=== PATIENT | male | born 1965 | race African-American/Black ===

== ENCOUNTER → 2016-11-13 | Outpatient (CLI) | payer MEDICAID ==
--- NOTE | 2016-11-13 15:22 | PN ---
DATE OF SERVICE: 11/13/2016 A 51-year-old gentleman who has been followed in the [facility] for treatment of obstructive sleep apnea-hypopnea syndrome. Patient has history of extremely severe obstructive sleep apnea-hypopnea syndrome with apnea-hypopnea index 98 with oxygen desaturation to 63%. Sleep study done in 2005. Since that time, patient is on treatment with CPAP, last titration done in 2009. Since that time, patient is on treatment on the pressure of 17 cm of water. Last time when I saw patient in the Sleep Center was 06/08/2014. At that time, he increased his weight up to 367 pounds from 352 pounds during titration. Today. His weight is down to 321 pounds. Patient continued to use his equipment every night. Sometimes when he is extremely tired, he has snoring with the machine. Sleep schedule is from around 9 p.m. to 4 a.m. Usually one time he goes to bed bathroom. Weir Sleepiness Scale is 1. 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 MEDICATIONS: Advair, enalapril, atenolol, spironolactone, ( ). During physical exam, the patient in no distress. BP 157/97, HR 60, RR 16. Height 6, 0. Weight 321, BMI 43.5. Neck 19 inches in circumference. Temperature 97.8. Oxygen saturation at room air 95%. Oropharynx low, position of soft palate short distance between soft palate and pharyngeal wall. ABDOMEN: Obese. EXTREMITIES: 1+ bilateral ankle edema. IMPRESSION: 1. Extremely severe obstructive sleep apnea-hypopnea syndrome. According to patient, he continued to use is CPAP equipment every night with a pressure of 17 cm of water. Sometimes he has snoring with the machine. 2. Obesity, body mass index of 43.5. Patient lost weight on about 40 pounds since previous titration. 3. Hypertension. 4. Asthma. 5. Status post tonsillectomy. 6. Swelling of the legs. PLAN: 1. Will repeat CPAP, if necessary BiPAP titration. 2. Will check condition of the patient's CPAP unit, if necessary we will replace unit. 3. Prescription for all necessary CPAP supplies. 4. I will see the patient for followup visit in about 4 weeks after titration will be done to relieve his clinical response on treatment, compliance with treatment and make any necessary adjustments. 5. Prescription for all necessary CPAP supplies now including mask, tube, filters. Thank you very much for allowing me to participate in the management of your patient. Sincerely, Ben Pagan MD, PhD, FAASM. Diplomat of [place] [employer], Sleep Medicine Board by [place] [employer] [place] [employer] Visual Lead of [facility] [place]
== END | disposition home or self-care (01) ==
LOC: SLEEP 13:24
PROVIDERS: ATTEND Internal Medicine
DX: G47.33 Obstructive sleep apnea (adult) (pediatric) (principal); E66.9 Obesity, unspecified; Z68.41 Body mass index [BMI] 40.0-44.9, adult; I10 Essential (primary) hypertension; J45.909 Unspecified asthma, uncomplicated; M79.89 Other specified soft tissue disorders; Z98.890 Other specified postprocedural states; Z79.899 Other long term (current) drug therapy
CPT/HCPCS: 99211

== ENCOUNTER → 2017-02-26 | Outpatient (CLI) | payer MEDICAID ==
--- NOTE | 2017-02-27 06:41 | PN ---
DATE OF SERVICE: 02/26/2017 A 51-year-old gentleman who has been followed in the sleep center for treatment of obstructive sleep apnea-hypopnea syndrome. Recently patient had ( ) titration with CPAP and received his new CPAP unit. He came for follow-up visit with his CPAP unit. I checked his CPAP unit. It showed that the patient is using equipment 100% of the time more than 4 hours. CPAP pressure is 15. Leak is 8 L per minute, which is acceptable. Total apnea-hypopnea index is only 1.3. Patient does not experience any problem related to the pressure, likes his machine. He has some problem with his full face mask. It is not very stable on his face. MEDICATIONS: Advair, enalapril, atenolol, spironolactone, ( ). PHYSICAL EXAMINATION: During physical exam, the patient in no distress. VITAL SIGNS: BP 178/98, HR 60, RR 16. Weight 316. Temperature 98.0. Oxygen saturation on room air 96%. HEENT: PERRLA, EOMI. Oropharynx low position of soft palate. NECK: Supple. No JVD, Thyroid is not palpable. LUNGS: Clear to percussion and to auscultation. Good air exchange. No wheezing or rhonchi. HEART: S1, S2 regular. No murmurs, gallops, or rubs. ABDOMEN: Obese. EXTREMITIES: 1+ ankle edema. 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 Cranial nerves 2 to 7 intact. There is no fasciculation or atrophy noted. No focal deficits observed. IMPRESSION: 1. Obstructive sleep apnea-hypopnea syndrome on full control with CPAP at 15 cm of water. 2. Hypertension. 3. Asthma. 4. Obesity. 5. Status post tonsillectomy. 6. Swelling of legs. PLAN: 1. Continue treatment with CPAP every night for the whole night. 2. Losing weight. 3. Sleep hygiene with regular time in bed for at least 8 hours. 4. No driving if feeling any sleepiness. 5. We will try to fit patient with different full face mask. Thank you very much for allowing me to participate in the management of your patient. Sincerely, Ben Pagan MD, PhD, FAASM Diplomat of [place] [employer], Sleep Medicine Board by [employer] Developer of [facility] [place]
== END | disposition home or self-care (01) ==
LOC: SLEEP 16:33
PROVIDERS: ATTEND Internal Medicine
DX: G47.33 Obstructive sleep apnea (adult) (pediatric) (principal); Z79.899 Other long term (current) drug therapy; I10 Essential (primary) hypertension; J45.909 Unspecified asthma, uncomplicated; E66.9 Obesity, unspecified; M79.89 Other specified soft tissue disorders

== ENCOUNTER 2018-09-01 14:48 | Inpatient (IN) | payer BC ==
--- NOTE | 2018-09-01 15:17 | ED ---
General Adult HPI - General Source: patient, RN notes reviewed Mode of arrival: ambulatory Limitations: no limitations <John Ontiveros - Last Filed: 09/01/18 18:44> <Nikko Pate - Last Filed: 09/01/18 18:49> - General Chief complaint: Recheck/Abnormal Lab/Rx Stated complaint: Abn lab results Time Seen by Provider: 09/01/18 14:57 - History of Present Illness Initial comments: Patient's a 53-year-old male presenting to the emergency room with multiple complaints. Patient does admit that he was seen at the family doctor's office recently. He states that he was called and notified that he had an abnormally high potassium and advised come here in emergency room. Patient states she's also had some cough some congestion. He does admit that he's had some right- sided lower back pain that has been following up with the family doctor for as well over the past two weeks. Patient denies any current back pain. States comes and goes and worse with certain movement. He states he has had some swelling down into his legs bilaterally. He admits to some cough congestion. Patient denies any other complaints or symptoms currently. Patient denies any recent fever, chills, shortness of breath, chest pain, abdominal pain, nausea or vomiting, numbness or tingling, headaches or visual changes, or any other complaints. (John Ontiveros) - Related Data Home Medications Medication Instructions Recorded Confirmed Albuterol Sulfate [Proair Hfa] 1 - 2 puff INHALATION RT-QID PRN 09/01/18 Atenolol 100 mg PO HS 09/01/18 09/01/18 Doxazosin [Cardura] 4 mg PO HS 09/01/18 09/01/18 Fluticasone/Salmeterol [Advair 1 puff INHALATION RT-BID 09/01/18 09/01/18 500-50 Diskus] Furosemide [Lasix] 20 mg PO HS 09/01/18 09/01/18 Ibuprofen [Motrin] 800 mg PO TID PRN 09/01/18 09/01/18 Losartan Potassium 100 mg PO HS 09/01/18 09/01/18 Spironolactone [Aldactone] 25 mg PO HS 09/01/18 09/01/18 traMADol HCL [Ultram] 50 mg PO TID PRN 09/01/18 09/01/18 Allergies Allergy/AdvReac Type Severity Reaction Status Date / Time enalapril Allergy Swelling Verified 09/01/18 16:04 feathers Allergy Unknown Verified 09/01/18 16:04 Influenza Virus Vaccines Allergy Unknown Verified 09/01/18 16:04 Review of Systems ROS Other: All systems not noted in ROS Statement are negative. <John Ontiveros - Last Filed: 09/01/18 18:44> ROS Other: All systems not noted in ROS Statement are negative. <Nikko Pate - Last Filed: 09/01/18 18:49> ROS Statement: Those systems with pertinent positive or pertinent negative responses have been documented in the HPI. Past Medical History Past Medical History: Asthma, Hypertension, Sleep Apnea/CPAP/BIPAP History of Any Multi-Drug Resistant Organisms: None Reported Past Surgical History: Tonsillectomy Past Psychological History: No Psychological Hx Reported Smoking Status: Former smoker Past Alcohol Use History: None Reported Past Drug Use History: None Reported <John Ontiveros - Last Filed: 09/01/18 18:44> General Exam Limitations: no limitations <John Ontiveros - Last Filed: 09/01/18 18:44> <Nikko Pate - Last Filed: 09/01/18 18:49> - General Exam Comments Initial Comments: General: The patient is awake and alert, in no distress, and does not appear acutely ill. Eye: Pupils are equal, round and reactive to light, extra-ocular movements are intact. No nystagmus. There is normal conjunctiva bilaterally. No signs of icterus. Ears, nose, mouth and throat: There are moist mucous membranes and no oral lesions. Neck: The neck is supple, there is no tenderness or JVD. Cardiovascular: There is a regular rate and rhythm. No murmur, rub or gallop is appreciated. Respiratory: Lungs are clear to auscultation, respirations are non-labored, breath sounds are equal. No wheezes, stridor, rales, or rhonchi. Musculoskeletal: Normal ROM, no tenderness. Strength 5/5. Sensation intact. Pulses equal bilaterally 2+. 1+ pitting edema Neurological: A&O x 3. CN II-XII intact, There are no obvious motor or sensory deficits. Coordination appears grossly intact. Speech is normal. Skin: Skin is warm and dry and no rashes or lesions are noted. Psychiatric: Cooperative, appropriate mood & affect, normal judgment. (John Ontiveros) Course <John Ontiveros - Last Filed: 09/01/18 18:44> <Nikko Pate - Last Filed: 09/01/18 18:49> Vital Signs 09/01/18 09/01/18 09/01/18 14:49 16:46 16:52 Temperature 98.1 F Pulse Rate 96 78 88 Respiratory 18 18 18 Rate Blood Pressure 163/110 Blood Pressure [Left Arm] Blood Pressure [Right Arm] O2 Sat by Pulse 95 Oximetry 09/01/18 18:20 Temperature Pulse Rate Respiratory Rate Blood Pressure Blood Pressure 180/130 [Left Arm] Blood Pressure 172/120 [Right Arm] O2 Sat by Pulse Oximetry - Reevaluation(s) Reevaluation #1: 09/01/18 18:49 Patient reevaluated by myself, Dr. Pate. Patient and family updated on results and plan. There is concern for new-onset A. fib. There is also concern for intermediate probability pulmonary embolism. Case was discussed in detail with Dr. jo, who will admit for . IV heparin has been started. Blood pressure were be further controlled. Cardiology and pulmonary consults will be placed. (Nikko Pate) EKG Findings - EKG Comments: EKG Findings:: EKG performed at 1516 shows atrial flutter at 99 bpm. QRS is 100. QT/QTC 340/436. No acute ST change. <John Ontiveros - Last Filed: 09/01/18 18:44> Medical Decision Making - Lab Data Result diagrams: 09/01/18 15:30 09/01/18 15:30 <John Ontiveros - Last Filed: 09/01/18 18:44> - Lab Data Result diagrams: 09/01/18 15:30 09/01/18 15:30 <Nikko Pate - Last Filed: 09/01/18 18:49> - Medical Decision Making Patient reexamined at this time shows no signs of distress is resting comfortably. Patient's EKG does show evidence for atrial flutter. No old EKG to compare. Patient denies any known history of A. fib or a flutter. Patient had outpatient labs obtained both on August 31 and on September 01. Labs were reviewed showing elevated potassium of 6.8. Did have an elevated d-dimer at 0.88. BNP was also elevated. Patient did have a V/Q scan due to kidney function. Computed tomography scan does show evidence for PE. Patient started on high-dose heparin here in the emergency room. Patient potassium 5.8 given dose of Lasix. Patient's BNP greater than 5000. Patient blood pressure and elevated here in the emergency room but did not take his home medication. Patient will be admitted to the hospital with consult to cardiology and pulmonology. (John Ontiveros) - Lab Data Lab Results 09/01/18 09/01/18 09/01/18 Range/Units 15:30 15:30 15:30 WBC 7.1 (3.8-10.6) k/uL RBC 4.57 (4.30-5.90) m/uL Hgb 11.9 L (13.0-17.5) gm/dL Hct 39.1 (39.0-53.0) % MCV 85.6 (80.0-100.0) fL MCH 26.1 (25.0-35.0) pg MCHC 30.5 L (31.0-37.0) g/dL RDW 14.3 (11.5-15.5) % Plt Count 171 (150-450) k/uL Neutrophils % 78 % Lymphocytes % 14 % Monocytes % 5 % Eosinophils % 3 % Basophils % 0 % Neutrophils # 5.5 (1.3-7.7) k/uL Lymphocytes # 1.0 (1.0-4.8) k/uL Monocytes # 0.3 (0-1.0) k/uL Eosinophils # 0.2 (0-0.7) k/uL Basophils # 0.0 (0-0.2) k/uL Hypochromasia Moderate Sodium 141 (137-145) mmol/L Potassium 5.8 H (3.5-5.1) mmol/L Chloride 112 H (98-107) mmol/L Carbon Dioxide 25 (22-30) mmol/L Anion Gap 4 mmol/L BUN 30 H (9-20) mg/dL Creatinine 2.25 H (0.66-1.25) mg/dL Est GFR (CKD-EPI)AfAm 37 (>60 ml/min/1.73 sqM) Est GFR (CKD-EPI)NonAf 32 (>60 ml/min/1.73 sqM) Glucose 132 H (74-99) mg/dL Calcium 8.3 L (8.4-10.2) mg/dL Total Bilirubin 0.5 (0.2-1.3) mg/dL AST 36 (17-59) U/L ALT 44 (21-72) U/L Alkaline Phosphatase 46 (38-126) U/L Total Creatine Kinase 401 H (55-170) U/L CK-MB (CK-2) 6.6 H (0.0-2.4) ng/mL CK-MB (CK-2) Rel Index 1.6 Troponin I 0.038 H* (0.000-0.034) ng/mL NT-Pro-B Natriuret Pep pg/mL Total Protein 5.9 L (6.3-8.2) g/dL Albumin 3.1 L (3.5-5.0) g/dL 09/01/18 Range/Units 15:30 WBC (3.8-10.6) k/uL RBC (4.30-5.90) m/uL Hgb (13.0-17.5) gm/dL Hct (39.0-53.0) % MCV (80.0-100.0) fL MCH (25.0-35.0) pg MCHC (31.0-37.0) g/dL RDW (11.5-15.5) % Plt Count (150-450) k/uL Neutrophils % % Lymphocytes % % Monocytes % % Eosinophils % % Basophils % % Neutrophils # (1.3-7.7) k/uL Lymphocytes # (1.0-4.8) k/uL Monocytes # (0-1.0) k/uL Eosinophils # (0-0.7) k/uL Basophils # (0-0.2) k/uL Hypochromasia Sodium (137-145) mmol/L Potassium (3.5-5.1) mmol/L Chloride (98-107) mmol/L Carbon Dioxide (22-30) mmol/L Anion Gap mmol/L BUN (9-20) mg/dL Creatinine (0.66-1.25) mg/dL Est GFR (CKD-EPI)AfAm (>60 ml/min/1.73 sqM) Est GFR (CKD-EPI)NonAf (>60 ml/min/1.73 sqM) Glucose (74-99) mg/dL Calcium (8.4-10.2) mg/dL Total Bilirubin (0.2-1.3) mg/dL AST (17-59) U/L ALT (21-72) U/L Alkaline Phosphatase (38-126) U/L Total Creatine Kinase (55-170) U/L CK-MB (CK-2) (0.0-2.4) ng/mL CK-MB (CK-2) Rel Index Troponin I (0.000-0.034) ng/mL NT-Pro-B Natriuret Pep 5200 pg/mL Total Protein (6.3-8.2) g/dL Albumin (3.5-5.0) g/dL Disposition Is patient prescribed a controlled substance at d/c from ED?: No Time of Disposition: 18:32 <John Ontiveros - Last Filed: 09/01/18 18:44> <Nikko Pate - Last Filed: 09/01/18 18:49> Clinical Impression: New onset atrial flutter, Pulmonary embolism, Hyperkalemia, Elevated troponin, MARION (acute kidney injury), CHF (congestive heart failure), HTN (hypertension) Disposition: ADMITTED IP TO THIS HOSP Condition: Stable Referrals: Williams Herring MD [Primary Care Provider] - 1-2 days
[2018-09-01 15:50] LABS: Basophils % (A) 0 %; Eosinophils # (A) 0.2 k/uL (0-0.7); Eosinophils % (A) 3 %; HCT 39.1 % (39.0-53.0); HGB 11.9 gm/dL (13.0-17.5); Hypochromasia Moderate; Lymphocytes % (A) 14 %; MCH 26.1 pg (25.0-35.0); MCHC 30.5 g/dL (31.0-37.0); MCV 85.6 fL (80.0-100.0); Mean Platelet Volume 6.7; Monocytes # (A) 0.3 k/uL (0-1.0); Monocytes % (A) 5 %; Neutrophils # (A) 5.5 k/uL (1.3-7.7); Neutrophils % (A) 78 %; Platelet Count 171 k/uL (150-450); RBC 4.57 m/uL (4.30-5.90); RDW 14.3 % (11.5-15.5); WBC 7.1 k/uL (3.8-10.6)
[2018-09-01 16:02] LABS: Albumin 3.1 g/dL (3.5-5.0); Calcium 8.3 mg/dL (8.4-10.2); Potassium 5.8 mmol/L (3.5-5.1); Total Bilirubin 0.5 mg/dL (0.2-1.3); Total Protein 5.9 g/dL (6.3-8.2)
[2018-09-01 16:21] LABS: Creatine Kinase MB 6.6 ng/mL (0.0-2.4)
[2018-09-01 16:32] LABS: Troponin I 0.038 ng/mL (0.000-0.034)
[2018-09-01] MEDS ORDERED: IPRATROPIUM-ALBUTEROL 3 ML NEB INHALATION STA (16:33)
[2018-09-01] MEDS ORDERED: HEPARIN SODIUM,PORCINE 5,000 UNIT/ML 1 ML VIAL IV ONE (16:58)
[2018-09-01] MEDS ORDERED: FUROSEMIDE 10 MG/ML 4 ML VIAL IV STA (16:59)
[2018-09-01] MEDS ORDERED: HEPARIN SOD,PORK IN 0.45% NACL 25,000 UNIT in 0.45% NACL 1 500ML.BAG IV SCH (17:00)
--- NOTE | 2018-09-01 17:57 | NM ---
EXAMINATION TYPE: NM pul vent and perfuse DATE OF EXAM: 09/01/2018 COMPARISON: NONE HISTORY: Short of breath TECHNIQUE: Utilizing inhalation of 33.1 mCi Tc 99m DTPA aerosol and intravenous injection of 5.41 mC i of Tc 99m MAA, ventilation and perfusion images are acquired post injection in multiple projections . FINDINGS: There is a large matched defect involving the right upper lobe anteriorly. There are numerous ventila tion abnormalities throughout the lungs. There is subsegmental perfusion defects in the remainder of the lung guy. IMPRESSION: Large right upper lobe matched defect. There is intermediate probability of pulmonary embolism. There is evidence for diffuse airway disease.
[2018-09-01] MEDS ORDERED: HEPARIN SODIUM,PORCINE 5,000 UNIT/ML 1 ML VIAL IV STA (18:08)
[2018-09-01] MEDS ORDERED: NITROGLYCERIN OINT 1 INCH/GM PACKET TOPICAL STA (18:22)
[2018-09-01] MEDS ORDERED: ATENOLOL 50 MG TAB PO STA (18:22)
[2018-09-01] MEDS ORDERED: SODIUM CHLORIDE 0.9% 1,000 ML IV ONE (18:24)
[2018-09-01] MEDS ORDERED: ASPIRIN 81 MG PO STA (18:24)
[2018-09-01] MEDS: HEPARIN SOD,PORK IN 0.45% NACL 25,000 UNIT in 0.45% NACL 1 500ML.BAG IV SCH (18:42)
--- NOTE | 2018-09-01 19:43 | XR ---
EXAMINATION TYPE: XR chest 2V DATE OF EXAM: 09/01/2018 COMPARISON: NONE HISTORY: Cough TECHNIQUE: Frontal and lateral views of the chest are obtained. FINDINGS: Heart appears enlarged. There is no gross heart failure. There is coarsening of the lung m arkings. There is no pleural effusion. Bony thorax is intact. IMPRESSION: Mild pulmonary congestion without overt heart failure. Mild cardiomegaly.
[2018-09-01 23:08] LABS: Creatine Kinase MB 8.1 ng/mL (0.0-2.4)
[2018-09-01 23:11] LABS: Troponin I 0.045 ng/mL (0.000-0.034)
[2018-09-02] MEDS ORDERED: IBUPROFEN 800 MG TAB PO PRN (03:04)
[2018-09-02] MEDS: traMADol 50 MG TAB PO PRN ×2 (03:26→20:22)
[2018-09-02 04:32] LABS: Cholesterol 188 mg/dL (<200); HDL Cholesterol 73 mg/dL (40-60); LDL Cholesterol,Calculated 97 mg/dL (0-99); Triglycerides 90 mg/dL (<150)
[2018-09-02 04:46] LABS: Creatine Kinase MB 8.1 ng/mL (0.0-2.4)
[2018-09-02 04:53] LABS: Troponin I 0.047 ng/mL (0.000-0.034)
[2018-09-02] MEDS: HEPARIN SOD,PORK IN 0.45% NACL 25,000 UNIT in 0.45% NACL 1 500ML.BAG IV SCH ×2 (06:35→18:19)
--- NOTE | 2018-09-02 08:49 | P.CRDCN ---
History of Present Illness Consult date: 09/02/18 Requesting physician: Patrick Manuel Consult reason: atrial flutter Chief complaint: Leg pain and swelling, elevated potassium History of present illness: This is a 53-year-old -[place]ian gentleman with known history of hypertension, asthma, prior history of smoking, he states that he quit smoking approximately 10 years ago, sleep apnea, denies any history of diabetes, no hyperlipidemia. He follows with Dr. Bazzi as his primary care doctor. Patient states he was at his primary care doctor's office, he had lab work done and was noted to have an elevated potassium was directed to come to the emergency room for admission. Patient denies any recent shortness of breath, no chest discomfort, no palpitations. He states the only symptom he's been dealing with recently is pain in his right leg, he has also noticed for the past few weeks to have swelling in his bilateral lower extremities. He does state that he has to sit up to sleep, but denies any PND or orthopnea states that at all related to pain and discomfort in his right leg. Patient does state that he had a recent venous duplex study that came back to be negative, I do not see record of that in our system. Chest x-ray on admission here did show mild pulmonary congestion without overt heart failure. Mild cardiomegaly. Lung perfusion scan was performed which revealed a large right upper lobe matched defect, there is intermediate probability of pulmonary embolism and evidence for diffuse airway disease. EKG on admission here shows typical atrial flutter with moderately rapid ventricular response. Blood pressure on arrival here 162/100, heart rate in the 90s, 95% on room air. Blood pressure this morning 173/115, heart rate in the 70s, 97% on room air. White blood cell count 7.1, hemoglobin 11.9, platelet count 171. Sodium 141, potassium 5.8, BUN 30, creatinine 2.2. Troponins 0.038, 0.045, 0.047. BNP level 5200. 's home medications included Ultram, Aldactone, losartan, Motrin, Lasix, Cardura, atenolol, and albuterol. These have all been resumed here. View of the fact patient has elevated potassium, we will hold the Aldactone at this time, we will also hold the Motrin and Ultram at this time secondary to the abnormal renal function. We will add Norvasc and hydrochlorothiazide to the patient's medication regime for more optimal blood pressure control. Past Medical History Past Medical History: Asthma, Hypertension, Sleep Apnea/CPAP/BIPAP History of Any Multi-Drug Resistant Organisms: None Reported Past Surgical History: Tonsillectomy Past Anesthesia/Blood Transfusion Reactions: No Reported Reaction Past Psychological History: No Psychological Hx Reported Smoking Status: Former smoker Past Alcohol Use History: None Reported Past Drug Use History: None Reported - Past Family History Father Additional Family Medical History / Comment(s): dementia Mother Family Medical History: COPD Medications and Allergies Home Medications Medication Instructions Recorded Confirmed Type Albuterol Sulfate [Proair Hfa] 1 - 2 puff INHALATION RT-QID PRN 09/01/18 History Atenolol 100 mg PO HS 09/01/18 09/01/18 History Doxazosin [Cardura] 4 mg PO HS 09/01/18 09/01/18 History Fluticasone/Salmeterol [Advair 1 puff INHALATION RT-BID 09/01/18 09/01/18 History 500-50 Diskus] Furosemide [Lasix] 20 mg PO HS 09/01/18 09/01/18 History Ibuprofen [Motrin] 800 mg PO TID PRN 09/01/18 09/01/18 History Losartan Potassium 100 mg PO HS 09/01/18 09/01/18 History Spironolactone [Aldactone] 25 mg PO HS 09/01/18 09/01/18 History traMADol HCL [Ultram] 50 mg PO TID PRN 09/01/18 09/01/18 History Allergies Allergy/AdvReac Type Severity Reaction Status Date / Time enalapril Allergy Swelling Verified 09/01/18 16:04 feathers Allergy Unknown Verified 09/01/18 16:04 Influenza Virus Vaccines Allergy Unknown Verified 09/01/18 16:04 Physical Exam Vitals: Vital Signs Temp Pulse Pulse Resp BP BP BP 09/02/18 04:00 98.6 F 72 18 173/115 09/02/18 00:00 98.2 F 72 18 166/108 09/01/18 20:24 98.3 F 62 18 152/91 09/01/18 20:00 98.3 F 62 18 152/91 09/01/18 19:00 146/105 12/05/18 18:30 94 24 09/01/18 18:20 180/130 172/120 09/01/18 18:00 96 24 09/01/18 16:52 88 18 09/01/18 16:46 78 18 09/01/18 16:00 147/113 09/01/18 15:30 115 H 23 151/106 09/01/18 15:17 88 31 H 09/01/18 14:49 98.1 F 96 18 163/110 Pulse Ox 09/02/18 04:00 97 09/02/18 00:00 96 09/01/18 20:24 93 L 09/01/18 20:00 93 L 09/01/18 19:00 09/01/18 18:30 93 L 09/01/18 18:20 09/01/18 18:00 91 L 09/01/18 16:52 09/01/18 16:46 09/01/18 16:00 09/01/18 15:30 90 L 09/01/18 15:17 88 L 09/01/18 14:49 95 Intake and Output 09/01/18 09/02/18 09/02/18 22:59 06:59 14:59 Intake Total 500 Output Total 325 Balance -325 500 Intake: Intake, IV Titration 500 Amount Heparin Sod,Pork in 0.45% 500 NaCl 25,000 unit In 0.45 % NaCl 1 500ml.bag @ 13. 34 UNITS/KG/HR 45.98 mls/ hr IV .[id number] [facility] Rx#: [id number] Output: Urine 325 Other: Voiding Method Urinal Urinal # Voids 1 Weight 172 kg PHYSICAL EXAMINATION: GENERAL: 53-year-old morbidly obese -[place]ian gentleman in no acute distress at the time of my examination HEENT: Head is atraumatic, normocephalic. Pupils equal, round. Sclera anicteric. Conjunctiva are clear. Mucous membranes of the mouth are moist. Neck is supple. There is elevated jugular venous pressure. No carotid bruit is heard. HEART EXAMINATION: Heart S1 and S2 irregularly irregular CHEST EXAMINATION: Lungs are clear with diminished air entry to the bases. ABDOMEN: Soft, obese nontender. Bowel sounds are heard. No organomegaly noted. EXTREMITIES: 1+ peripheral pulses with 1-2+ evidence of peripheral edema.. NEUROLOGIC patient is awake, alert and oriented 3 . . Results 09/01/18 15:30 09/01/18 15:30 Cardiac Enzymes 09/01/18 09/01/18 09/01/18 Range/Units 15:30 15:30 22:26 AST 36 (17-59) U/L CK-MB (CK-2) 6.6 H 8.1 H (0.0-2.4) ng/mL Troponin I 0.038 H* 0.045 H* (0.000-0.034) ng/mL 09/02/18 Range/Units 03:46 AST (17-59) U/L CK-MB (CK-2) 8.1 H (0.0-2.4) ng/mL Troponin I 0.047 H* (0.000-0.034) ng/mL Coagulation 09/02/18 Range/Units 03:46 APTT 71.0 H (22.0-30.0) sec Lipids 09/02/18 Range/Units 03:46 Triglycerides 90 (<150) mg/dL Cholesterol 188 (<200) mg/dL HDL Cholesterol 73 H (40-60) mg/dL CBC 09/01/18 Range/Units 15:30 WBC 7.1 (3.8-10.6) k/uL RBC 4.57 (4.30-5.90) m/uL Hgb 11.9 L (13.0-17.5) gm/dL Hct 39.1 (39.0-53.0) % Plt Count 171 (150-450) k/uL Comprehensive Metabolic Panel 09/01/18 Range/Units 15:30 Sodium 141 (137-145) mmol/L Potassium 5.8 H (3.5-5.1) mmol/L Chloride 112 H (98-107) mmol/L Carbon Dioxide 25 (22-30) mmol/L BUN 30 H (9-20) mg/dL Creatinine 2.25 H (0.66-1.25) mg/dL Glucose 132 H (74-99) mg/dL Calcium 8.3 L (8.4-10.2) mg/dL AST 36 (17-59) U/L ALT 44 (21-72) U/L Alkaline Phosphatase 46 (38-126) U/L Total Protein 5.9 L (6.3-8.2) g/dL Albumin 3.1 L (3.5-5.0) g/dL Current Medications Generic Name Dose Route Start Last Admin Trade Name Freq PRN Reason Stop Dose Admin Albuterol Sulfate 2.5 mg 09/02/18 03:04 Ventolin Nebulized INHALATION RT-QID PRN Shortness Of Breath Aspirin 325 mg 09/02/18 09:00 Aspirin PO DAILY [facility] Atenolol 100 mg 09/02/18 21:00 Tenormin PO HS [facility] Budesonide/Formoterol Fumarate 1 puff 09/02/18 08:00 Symbicort 160-4.5 Mcg Inhaler INHALATION RT-BID MIGUEL ÁNGEL Doxazosin Mesylate 4 mg 09/02/18 21:00 Cardura PO HS [facility] Furosemide 40 mg 09/02/18 09:00 Lasix IV Q12HR [facility] Heparin Sodium/Sodium Chloride 500 mls @ 45.98 mls/hr 09/01/18 18:15 06:35 25,000 unit/ Sodium Chloride IV 13.34 units/kg/hr .[id number] MIGUEL ÁNGEL 45.98 mls/hr Administration Protocol 13.34 UNITS/KG/HR Ibuprofen 800 mg 09/02/18 03:04 Motrin PO TID PRN Pain Losartan Potassium 100 mg 09/02/18 21:00 Cozaar PO HS [facility] Spironolactone 25 mg 09/02/18 21:00 Aldactone PO HS [facility] Tramadol HCl 50 mg 09/02/18 03:04 09/02/18 03:26 Ultram PO 50 mg TID PRN Administration Pain Intake and Output 09/01/18 09/02/18 09/02/18 22:59 06:59 14:59 Intake Total 500 Output Total 325 Balance -325 500 Intake: Intake, IV Titration 500 Amount Heparin Sod,Pork in 0.45% 500 NaCl 25,000 unit In 0.45 % NaCl 1 500ml.bag @ 13. 34 UNITS/KG/HR 45.98 mls/ hr IV .[id number] [facility] Rx#: [id number] Output: Urine 325 Other: Voiding Method Urinal Urinal # Voids 1 Weight 172 kg 09/01/18 15:30 09/01/18 15:30 EKG Interpretations (text) EKG shows atrial flutter with a moderately rapid ventricular response. Assessment and Plan Plan: Assessment and plan #1 hyperkalemia, patient had been taking Aldactone and losartan at home. #2 hypertensive urgency #3 history of hypertension #4 acute renal failure #5 evidence of pulmonary embolism on VQ scan #6 abnormal BNP level, could be secondary to pulmonary embolism, could also represent mild congestive heart failure #7 abnormal troponins, not consistent with acute coronary syndrome, could be secondary to abnormal renal function and presence of pulmonary embolism. #8 asthma #9 sleep apnea #10 prior history of smoking, patient states he quit smoking 10 years ago #11 typical atrial flutter, new onset for the patient Plan We will continue IV heparin,, hold Aldactone, discontinue Motrin and Ultram at this time. We will add Norvasc and hydrochlorothiazide to his medication regime for more optimal blood pressure control. Obtain an echocardiogram with Doppler study. D-dimer. We will also request a venous duplex study of his lower extremities. Further recommendations to follow. DNP note has been reviewed, I agree with a documented findings and plan of care. Patient was seen and examined.
[2018-09-02] MEDS: ALBUTEROL NEBULIZED 2.5 MG/3 ML INHALATION PRN ×2 (08:56→12:15)
[2018-09-02] MEDS: SYMBICORT 160-4.5 MCG INHALER INHALATION SCH ×2 (08:56→20:08)
[2018-09-02] MEDS ORDERED: ASPIRIN 325 MG TAB PO SCH (09:00)
[2018-09-02] MEDS: HYDROCHLOROTHIAZIDE 25 MG TAB PO SCH (09:33)
[2018-09-02] MEDS: ASPIRIN 81 MG PO SCH (09:33)
[2018-09-02] MEDS: amLODIPine 10 MG TAB PO SCH (09:33)
[2018-09-02] MEDS: FUROSEMIDE 10 MG/ML 4 ML VIAL IV SCH ×2 (09:33→20:33)
--- NOTE | 2018-09-02 09:57 | US ---
EXAMINATION TYPE: US venous doppler duplex LE BI DATE OF EXAM: 09/02/2018 9:41 AM COMPARISON: NONE CLINICAL HISTORY: 53-year-old male with pain, rule out DVT. SIDE PERFORMED: Bilateral TECHNIQUE: The lower extremity deep venous system is examined utilizing real time linear array sonog shamar with graded compression, doppler sonography and color-flow sonography. FINDINGS: VESSELS IMAGED: External Iliac Vein (EIV) Common Femoral Vein Deep Femoral Vein Greater Saphenous Vein * Femoral Vein Popliteal Vein Small Saphenous Vein * Proximal Calf Veins (* superficial vessels) Sonography notes: Patient 6'1", 379lbs, technically difficult study. Right Leg: Negative for DVT to the extent visualized. Due to patient's large abdomen, unable to vis ualize the groin region, particularly the EIV, proximal CFV, and GSV. Proximal calf veins not seen, u nable to visualize the lower femoral vein for compression. Left Leg: Negative for DVT to the extent visualized. Due to patient's large abdomen, unable to visu kori the PICC line region, in particular, the EIV, upper CFV, and GSV not seen. The proximal calf ve ins not seen, unable to visualize the lower femoral vein for compressibility. IMPRESSION: Extensive limitation in visualization due to patient large body habitus. Only portions of the common femoral vein and the upper to mid superficial femoral veins, and popliteal veins were adequately visu alized. No DVT along the visualized portions.
--- NOTE | 2018-09-02 11:17 | ECHOF ---
Referral Reason:chest pain MEASUREMENTS -------- HEIGHT: 180.3 cm WEIGHT: 171.9 kg BP: RVIDd: 3.2 cm (< 3.3) IVSd: 1.6 cm (0.6 - 1.1) LVIDd: 3.6 cm (3.9 - 5.3) LVPWd: 1.9 cm (0.6 - 1.1) IVSs: 2.7 cm LVIDs: 1.6 cm LVPWs: 2.4 cm LAESV Index (A-L): 48.03 ml/m Ao Diam: 3.8 cm (2.0 - 3.7) AV Cusp: 2.6 cm (1.5 - 2.6) LA Diam: 4.3 cm (2.7 - 3.8) MV EXCURSION: 16.920 mm (> 18.000) MV EF SLOPE: 104 mm/s (70 - 150) EPSS: 0.6 cm AR PHT: 329 ms RAP: 15.00 mmHg RVSP: 37.63 mmHg FINDINGS -------- Atrial fibrillation. This was a technically adequate study. The left ventricular size is normal. There is severe concentric left ventricular hypertrophy. Ove rall left ventricular systolic function is low-normal with, an EF between 50 - 55 %. The right ventricle is normal in size. LA is severely dilated >40 ml/m2 The right atrium is normal in size. The aortic valve is trileaflet and appears structurally normal. Mild mitral annular calcification present. Mild mitral regurgitation is present. Mild tricuspid regurgitation present. There is mild pulmonary hypertension. The right ventricular systolic pressure, as measured by Doppler, is 37.63mmHg. The pulmonic valve was not well visualized. There is no pulmonic regurgitation present. The aortic root size is normal. The inferior vena cava is mildly dilated. There is a trivial pericardial effusion present. CONCLUSIONS -------- 1. Atrial fibrillation. 2. This was a technically adequate study. 3. The left ventricular size is normal. 4. There is severe concentric left ventricular hypertrophy. 5. Overall left ventricular systolic function is low-normal with, an EF between 50 - 55 %. 6. LA is severely dilated >40 ml/m2 7. The aortic valve is trileaflet and appears structurally normal. 8. Mild mitral annular calcification present. 9. Mild mitral regurgitation is present. 10. Mild tricuspid regurgitation present. 11. There is mild pulmonary hypertension. 12. The pulmonic valve was not well visualized. 13. There is no pulmonic regurgitation present. 14. The aortic root size is normal. 15. The inferior vena cava is mildly dilated. 16. There is a trivial pericardial effusion present. SOFA COVER INSPECTOR: Elmira Ascencio RDCS
[2018-09-02] MEDS: hydrALAZINE HCL 25 MG TAB PO SCH (11:36)
--- NOTE | 2018-09-02 15:38 | P.CNPUL ---
History of Present Illness Consult date: 09/02/18 Reason for consult: dyspnea, pulmonary embolism History of present illness: This is a morbidly obese 53-year-old -[place] male patient with known history of chronic bronchial asthma and obstructive sleep apnea. The patient has been maintained on Advair regarding his bronchial asthma. The patient is also is utilizing CPAP at a pressure of 17 cm of water for severe BARRERA. The patient has also chronic lower extremity edema. Recently was noted to have some increased swelling in lower extremities. He was also having some pain in his right lower extremity that was thought to be related to a sciatic pain. He came into the emergency department the patient was given nonsteroidal anti- inflammatory medication in the form of ibuprofen 800 mg to be taken 3 times a day. Following that, the patient started having some increased swelling in his lower extremities. He had some blood work at his primary care physician's office and he was asked to come into the hospital because of an abnormal electrolyte knowing that the patient's potassium level was apparently found to be elevated. There was also a component of an acute kidney injury. The patient came into the hospital and he had a BUN of 30 with a creatinine of 2.2. His sodium level was 141 with a potassium level of 5.8. His BNP level was 5002 100. 2 sets of troponins were sent and the levels were 0.03 and 0.04 and the last level came back at 0.04. A Doppler of the lower extremity was limited however he did not show any significant popping and lower extremities. There was no evidence of any DVT. VQ scan showed a right upper lobe mass defect. This was called to be of an intermediate probability. Despite this VQ scan findings, the patient denied having any worsening in his baseline shortness of breath. No cough. No sputum production. No pleurisy. No hemoptysis. He denies having any previous history of DVT or pulmonary embolism. His EKG showed atrial water with variable block. The patient was started on IV anticoagulation. He is doing better for now. He is utilizing his CPAP overnight. He quit smoking approximately 10 years ago. No history of diabetes. Most of hyperlipidemia. He is known to have hypertension and bronchial asthma is also within his history. Review of Systems Constitutional: Reports fatigue, Reports weakness Eyes: denies blurred vision, denies bulging eye, denies decreased vision Ears: deny: decreased hearing, ear discharge, earache, tinnitus Ears, nose, mouth and throat: Denies headache, Denies sore throat Cardiovascular: Reports decreased exercise tolerance, Reports dyspnea on exertion, Reports leg edema, Reports shortness of breath Respiratory: Reports dyspnea Gastrointestinal: Denies abdominal pain, Denies diarrhea, Denies nausea, Denies vomiting Musculoskeletal: Reports arm numbness/tingling (In addition to pain in the right lower extremity anterior aspect. The patient also had some increased edema lower extremity is bilaterally.) Musculoskeletal: bilateral: ankle pain, ankle swelling, absent: ankle stiffness Integumentary: Denies pruritus, Denies rash Neurological: Denies numbness, Denies weakness Psychiatric: Denies anxiety, Denies depression Endocrine: Reports fatigue Hematologic/Lymphatic: Reports as per HPI Allergic/Immunologic: Reports as per HPI Past Medical History Past Medical History: Asthma, Hypertension, Sleep Apnea/CPAP/BIPAP Additional Past Medical History / Comment(s): Chronic bronchial asthma, obstructive sleep apnea, obesity with a BMI 50.0, chronic lower extremity edema , hypertension, BPH, History of Any Multi-Drug Resistant Organisms: None Reported Past Surgical History: Tonsillectomy Past Anesthesia/Blood Transfusion Reactions: No Reported Reaction Past Psychological History: No Psychological Hx Reported Smoking Status: Former smoker Past Alcohol Use History: None Reported Past Drug Use History: None Reported - Past Family History Father Additional Family Medical History / Comment(s): dementia Mother Family Medical History: COPD Medications and Allergies Home Medications Medication Instructions Recorded Confirmed Type Albuterol Sulfate [Proair Hfa] 1 - 2 puff INHALATION RT-QID PRN 09/01/18 History Atenolol 100 mg PO HS 09/01/18 09/01/18 History Doxazosin [Cardura] 4 mg PO HS 09/01/18 09/01/18 History Fluticasone/Salmeterol [Advair 1 puff INHALATION RT-BID 09/01/18 09/01/18 History 500-50 Diskus] Furosemide [Lasix] 20 mg PO HS 09/01/18 09/01/18 History Ibuprofen [Motrin] 800 mg PO TID PRN 09/01/18 09/01/18 History Losartan Potassium 100 mg PO HS 09/01/18 09/01/18 History Spironolactone [Aldactone] 25 mg PO HS 09/01/18 09/01/18 History traMADol HCL [Ultram] 50 mg PO TID PRN 09/01/18 09/01/18 History Allergies Allergy/AdvReac Type Severity Reaction Status Date / Time enalapril Allergy Swelling Verified 09/01/18 16:04 feathers Allergy Unknown Verified 09/01/18 16:04 Influenza Virus Vaccines Allergy Unknown Verified 09/01/18 16:04 Physical Exam Vitals: Vital Signs Temp Pulse Pulse Resp BP BP BP 09/02/18 12:27 88 09/02/18 12:16 80 09/02/18 11:30 98.2 F 74 18 160/97 09/02/18 09:11 76 09/02/18 08:57 76 09/02/18 08:45 96.6 F L 77 18 169/111 09/02/18 04:00 98.6 F 72 18 173/115 09/02/18 00:00 98.2 F 72 18 166/108 09/01/18 20:24 98.3 F 62 18 152/91 09/01/18 20:00 98.3 F 62 18 152/91 09/01/18 19:00 146/105 09/01/18 18:30 94 24 09/01/18 18:20 180/130 172/120 09/01/18 18:00 96 24 09/01/18 16:52 88 18 09/01/18 16:46 78 18 09/01/18 16:00 147/113 Pulse Ox 09/02/18 12:27 09/02/18 12:16 09/02/18 11:30 94 L 09/02/18 09:11 09/02/18 08:57 09/02/18 08:45 91 L 09/02/18 04:00 97 09/02/18 00:00 96 09/01/18 20:24 93 L 09/01/18 20:00 93 L 09/01/18 19:00 09/01/18 18:30 93 L 09/01/18 18:20 09/01/18 18:00 91 L 09/01/18 16:52 09/01/18 16:46 09/01/18 16:00 Intake and Output 09/02/18 09/02/18 09/02/18 06:59 14:59 22:59 Intake Total 500 760 Output Total 1600 Balance 500 -840 Intake: Intake, IV Titration 500 160 Amount Heparin Sod,Pork in 0.45% 500 NaCl 25,000 unit In 0.45 % NaCl 1 500ml.bag @ 13. 34 UNITS/KG/HR 45.98 mls/ hr IV .[id number] [facility] Rx#: [id number] Sodium Chloride 0.9% 1, 160 000 ml @ 100 mls/hr IV . Q10H [facility] Rx#:[id number] Oral 600 Output: Urine 1600 Other: Voiding Method Urinal Weight 172 kg Morbidly obese, comfortable likely distress. Head exam was generally normal. There was no scleral icterus or corneal arcus. Mucous membranes were moist. Neck was supple and without jugular venous distension, thyromegaly, or carotid bruits. Carotids were easily palpable bilaterally. There was no adenopathy. The patient has significant crowding of the posterior oropharynx and Mallampati class IV Lungs sounds are diminished in lung bases bilaterally was clear. Sounds equal and symmetrical. Few scattered expiratory wheezes and rhonchi upon forceful expiratory maneuvers. Heart sounds are irregular, distant, positive S1-S2 and there is some accentuation of the second heart sound. Abdominal exam revealed normal bowel sounds. The abdomen was soft, non-tender, and without masses, organomegaly, or appreciable enlargement of the abdominal aorta. Extremities revealed +1-2 bilateral pitting edema and there is no cyanosis or clubbing. No open wounds or sores. Examination of the skin revealed no evidence of significant rashes, suspicious appearing nevi or other concerning lesions. Neurologically awake and alert and is no focal logical deficits. Results - Laboratory Findings CBC and BMP: 09/01/18 15:30 09/01/18 15:30 PT/INR, D-dimer D-Dimer 0.55 mg/L FEU (<0.60) 09/02/18 08:28 Abnormal lab findings: Abnormal Labs 09/01/18 09/01/18 09/01/18 15:30 15:30 15:30 Hgb 11.9 L MCHC 30.5 L APTT Potassium 5.8 H Chloride 112 H BUN 30 H Creatinine 2.25 H Glucose 132 H Calcium 8.3 L Total Creatine Kinase 401 H CK-MB (CK-2) 6.6 H Troponin I 0.038 H* Total Protein 5.9 L Albumin 3.1 L HDL Cholesterol 09/01/18 09/02/18 09/02/18 22:26 03:46 03:46 Hgb MCHC APTT Potassium Chloride BUN Creatinine Glucose Calcium Total Creatine Kinase 353 H 338 H CK-MB (CK-2) 8.1 H 8.1 H Troponin I 0.045 H* 0.047 H* Total Protein Albumin HDL Cholesterol 73 H 09/02/18 03:46 Hgb MCHC APTT 71.0 H Potassium Chloride BUN Creatinine Glucose Calcium Total Creatine Kinase CK-MB (CK-2) Troponin I Total Protein Albumin HDL Cholesterol - Diagnostic Findings Chest x-ray: image reviewed Assessment and Plan Plan: Assessment 1 progressive lower extremity edema currently under investigation. The patient was on a combination of diuretics at home including Aldactone and Lasix. 2 acute kidney injury, probably related to a combination of diuretics and use of nonsteroidal anti-inflammatory medication. Currently off ibuprofen and diuretics have been discontinued also. 3 acute hyperkalemia secondary to MRSA, Aldactone and losartan 4 hypertension 5 obstructive sleep apnea maintained on CPAP therapy at a pressure of 17 cm of water 6 moderate degree of secondary pulmonary hypertension 7 preserved LV function based on her most recent echocardiogram with an ejection fraction of about 50% 8 intermediate probability VQ scan with low suspicion for pulmonary embolism and the Doppler of the lower extremity was negative and a d-dimer was also low 9 atrial flutter with variable block, rate controlled 10 bronchial asthma moderate persistent nature maintained on Advair on outpatient basis 11 BPH Plan Hold nonsteroidal anti-inflammatory medication. Monitor the potassium level. Continue with Lasix 40 mg every 12 hours and follow-up on the renal function and the lower extremity edema. Continue CPAP therapy at pressure of 17 cm of water. The patient on IV heparin and he will need long-term and to coagulation special with underlying chronic atrial flutter. Pulmonary embolism is doubtful. Dr. Aguayo extremity was negative. D-dimer was low. Anticoagulation will be needed on the basis of his atrial flutter. Bronchial asthma currently inactive and stable. Advair was replaced with Symbicort during the The hospital. We'll put the patient was on albuterol nebulized treatments 4 times a day and when necessary. We'll continue to follow.
--- NOTE | 2018-09-02 17:41 | HP ---
HISTORY AND PHYSICAL DATE OF ADMISSION: 09/01/2018. DATE OF SERVICE: 09/02/2018. PRESENTING COMPLAINT: High potassium. HISTORY OF PRESENTING COMPLAINT: This is a 53-year-old patient who follows with Dr. Herring out of [place]. The patient's chronic stable medical conditions include morbid obesity, obstructive sleep apnea, hypertension. The patient gone for his regular physical checkup and was found to have elevated potassium. Other blood work also came back to be abnormal. The patient also noticed to be wheezing for the last 2 weeks, has got a slight cough. Also noted edema of the lower extremities. The patient has been having trouble sleeping, and has been sitting up and sleeping. Also noticed that his sciatica had played up. When patient presented to the ER, he was found to have a potassium 5.8, BUN of 30, creatinine 2.25. Also had a troponin leak of 0.038. The patient admitted for the same. ProBNP was 5200. The patient is put on bronchodilators. Renal offensive medications including diuretics and NSAIDs were discontinued. Consultation was made to Pulmonary and Cardiology. Also, V/Q scan was ordered in the ER that did show a large matched defect of the upper lobe. The patient does use a BiPAP. Feeling tired and run down. No fever or chills. REVIEW OF SYSTEMS: CONSTITUTIONAL: Weak, tired. HEENT none. RESPIRATORY as above including wheezing, coughing. No sputum. CARDIOVASCULAR: Lower extremity edema. GASTROINTESTINAL: None. GENITOURINARY: None. MUSCULOSKELETAL: Chronic low back pain. DERMATOLOGICAL, HEMATOLOGIC, LYMPHATIC: none. PSYCHIATRY: None. NEUROLOGICAL: None. PAST MEDICAL HISTORY: Asthma, hypertension, sleep apnea, obstructive sleep apnea, morbid obesity, chronic lower extremity edema, hypertension, BPH. PAST SURGICAL HISTORY: Tonsillectomy. SOCIAL HISTORY: The patient smoked for about 20 years, stopped 10 years ago. . 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 No alcohol. Lives with his family. FAMILY HISTORY: COPD and dementia. HOME MEDICATIONS: 1. Ultram 50 mg p.o. t.i.d. p.r.n. 2. Aldactone 25 mg q.h.s. 3. Losartan 100 mg q.h.s. 4. Motrin 800 mg p.o. t.i.d. p.r.n. 5. Lasix 20 mg at bedtime. 6. Advair 500/50 1 puff b.i.d. 7. Cardura 4 mg q.h.s. 8. Atenolol 100 mg q.h.s. 9. ProAir 1-2 puffs q.i.d. p.r.n. ALLERGIES: TO ENALAPRIL, INFLUENZA VACCINE. PHYSICAL EXAMINATION: VITAL SIGNS: Temperature 98.1, pulse 96, respiration 31, blood pressure 160/110, pulse ox 95% on room air. GENERAL APPEARANCE: Well built, BMI 50, lying in bed, short of breath at rest. EYES: Pupils equal. Conjunctivae normal. HEENT: External appearance of nose and ears normal. Oral cavity normal. NECK: JVD unable to assess. Mass not palpable. RESPIRATORY: Effort increased. LUNGS: Diminished breath sounds. Some wheezing. CARDIOVASCULAR: Heart sounds irregular. Edema present. ABDOMEN distended, soft. Liver and spleen not palpable. LYMPHATICS: No lymph nodes palpable in the neck and axilla. PSYCHIATRY: Alert and oriented x3. Mood and affect slightly anxious-appearing. NEUROLOGICAL: Pupils equal. Cranial nerves grossly intact. Power and sensation grossly intact. INVESTIGATIONS: White count 7.1, hemoglobin 11.9, platelets 131, potassium 5.8, BUN 30, creatinine 2.25. Troponin 0.038. LDL 97. ASSESSMENT: 1. Acute moderate persistent asthma with acute exacerbation. 2. Possible bilateral lower extremity venous insufficiency, the edema is chronic. Do not see any evidence of pulmonary hypertension. 3. Acute renal failure possibly a combination of acute tubular necrosis and prerenal. The patient being on NSAIDs, high dose of NSAIDs and the Lasix. 4. Essential hypertension. 5. Obstructive sleep apnea. 6. Hyperkalemia in the setting of renal failure. 7. Morbid obesity BMI 50. 8. Troponin leak with no cardiac symptoms in the setting of renal failure, not acute coronary syndrome. 9. Hypoalbuminemia in the setting of renal failure. 10.Atrial flutter with variable ventricular rate, new diagnosis. 11.IV heparin monitoring. PLAN: Patient's Aldactone, losartan, Motrin, Lasix all have been discontinued. We will do renal ultrasound. We will also send off a UA. Consultation was made to Cardiology and Pulmonary. I doubt patient has acute pulmonary embolism. We will also get a pulmonary opinion for the same. Care was discussed with the patient. Questions were answered. The patient will also be put on bronchodilators. Doppler studies also negative for the lower extremity. MMODL / IJN: [id number] /
[2018-09-02] MEDS: DOXAZOSIN 4 MG TAB PO SCH (20:32)
[2018-09-02] MEDS ORDERED: ATENOLOL 50 MG TAB PO SCH (21:00)
[2018-09-02] MEDS ORDERED: SPIRONOLACTONE 25 MG TAB PO SCH (21:00)
[2018-09-02] MEDS ORDERED: LOSARTAN 50 MG TAB PO SCH (21:00)
[2018-09-03] MEDS: traMADol 50 MG TAB PO PRN ×3 (03:23→23:33)
[2018-09-03] MEDS: SYMBICORT 160-4.5 MCG INHALER INHALATION SCH ×2 (07:58→19:58)
[2018-09-03] MEDS: ALBUTEROL NEBULIZED 2.5 MG/3 ML INHALATION PRN (07:58)
[2018-09-03] MEDS: ASPIRIN 81 MG PO SCH (08:36)
[2018-09-03] MEDS: HYDROCHLOROTHIAZIDE 25 MG TAB PO SCH (08:36)
[2018-09-03] MEDS: amLODIPine 10 MG TAB PO SCH (08:36)
[2018-09-03] MEDS: hydrALAZINE HCL 25 MG TAB PO SCH (08:36)
[2018-09-03] MEDS: FUROSEMIDE 10 MG/ML 4 ML VIAL IV SCH ×2 (08:36→20:17)
--- NOTE | 2018-09-03 09:59 | US ---
EXAMINATION TYPE: US kidneys/renal and bladder DATE OF EXAM: 09/03/2018 COMPARISON: NONE CLINICAL HISTORY: renal failure. Renal failure EXAM MEASUREMENTS: Right Kidney: 10.3 x 5.8 x 5.8 cm Left Kidney: 11.4 x 6.4 x 5.4 cm Severely, morbidly obese pt, difficult exam Right Kidney: Nearly anechoic lesion lateral/lower= 2.4 x 2.5 x 1.9 cm. Some increased through transm ission is seen. Left Kidney: Nearly anechoic lesion medial= 5.7 x 4.8 x 5.3 cm. Some increased through transmission i s seen. Bladder: wnl, difficult to visualize Bilateral Jets seen: No There is no evidence for hydronephrosis at this point in time. No nephrolithiasis is seen. The urin [place] bladder is anechoic. Bilateral ureteral jets are seen. IMPRESSION: No hydronephrosis or nephrolithiasis. Probable bilateral renal cysts.
[2018-09-03 10:10] LABS: Calcium 8.3 mg/dL (8.4-10.2); Potassium 4.9 mmol/L (3.5-5.1)
[2018-09-03] MEDS: HEPARIN SOD,PORK IN 0.45% NACL 25,000 UNIT in 0.45% NACL 1 500ML.BAG IV SCH ×2 (10:39→15:44)
[2018-09-03] MEDS ORDERED: HEPARIN SODIUM,PORCINE 5,000 UNIT/ML 1 ML VIAL IV STA (10:49)
[2018-09-03 11:57] LABS: Glucose,Whole Blood 91 mg/dL (75-99)
--- NOTE | 2018-09-03 14:20 | P.PN ---
Subjective Progress Note Date: 09/03/18 This is a 53-year-old -Turkish gentleman with known history of hypertension, asthma, prior history of smoking, he states that he quit smoking approximately 10 years ago, sleep apnea, denies any history of diabetes, no hyperlipidemia. He follows with Dr. Bazzi as his primary care doctor. Patient states he was at his primary care doctor's office, he had lab work done and was noted to have an elevated potassium was directed to come to the emergency room for admission. Patient denies any recent shortness of breath, no chest discomfort, no palpitations. He states the only symptom he's been dealing with recently is pain in his right leg, he has also noticed for the past few weeks to have swelling in his bilateral lower extremities. He does state that he has to sit up to sleep, but denies any PND or orthopnea states that at all related to pain and discomfort in his right leg. Patient does state that he had a recent venous duplex study that came back to be negative, I do not see record of that in our system. Chest x-ray on admission here did show mild pulmonary congestion without overt heart failure. Mild cardiomegaly. Lung perfusion scan was performed which revealed a large right upper lobe matched defect, there is intermediate probability of pulmonary embolism and evidence for diffuse airway disease. EKG on admission here shows typical atrial flutter with moderately rapid ventricular response. Blood pressure on arrival here 162/100, heart rate in the 90s, 95% on room air. Blood pressure this morning 173/115, heart rate in the 70s, 97% on room air. White blood cell count 7.1, hemoglobin 11.9, platelet count 171. Sodium 141, potassium 5.8, BUN 30, creatinine 2.2. Troponins 0.038, 0.045, 0.047. BNP level 5200. 's home medications included Ultram, Aldactone, losartan, Motrin, Lasix, Cardura, atenolol, and albuterol. These have all been resumed here. View of the fact patient has elevated potassium, we will hold the Aldactone at this time, we will also hold the Motrin and Ultram at this time secondary to the abnormal renal function. We will add Norvasc and hydrochlorothiazide to the patient's medication regime for more optimal blood pressure control. 09/03/2018 Patient seen and examined today, swelling is improving. Diuresing well. Weight is down 5 kg today, BUN 29, creatinine 2.4, potassium 4.9. Blood pressure 152/80, echo was performed which revealed an ejection fraction of 50-55 %. Objective - Vital Signs Vital signs: Vital Signs Temp 98 F 09/03/18 11:08 Pulse 83 09/03/18 11:08 Resp 18 09/03/18 11:08 BP 152/85 09/03/18 11:08 Pulse Ox 93 L 09/03/18 11:08 Intake & Output 09/02/18 09/03/18 09/03/18 18:59 06:59 18:59 Intake Total 1740 1184 Output Total 1600 1325 Balance 140 -1325 1184 Weight 167.2 kg Intake: Intake, IV Titration 660 500 Amount Heparin Sod,Pork in 0.45% 500 500 NaCl 25,000 unit In 0.45 % NaCl 1 500ml.bag @ 13. 34 UNITS/KG/HR 45.98 mls/ hr IV .[id number] [facility] Rx#: [id number] Sodium Chloride 0.9% 1, 160 000 ml @ 100 mls/hr IV . Q10H ONE Rx#:[id number] Oral 1080 684 Output: Urine 1600 1325 Other: Voiding Method Urinal Urinal # Voids 1 2 - Exam PHYSICAL EXAMINATION: GENERAL: 53-year-old morbidly obese -Turkish gentleman in no acute distress at the time of my examination HEENT: Head is atraumatic, normocephalic. Pupils equal, round. Sclera anicteric. Conjunctiva are clear. Mucous membranes of the mouth are moist. Neck is supple. There is elevated jugular venous pressure. No carotid bruit is heard. HEART EXAMINATION: Heart S1 and S2 irregularly irregular CHEST EXAMINATION: Lungs are clear with diminished air entry to the bases. ABDOMEN: Soft, obese nontender. Bowel sounds are heard. No organomegaly noted. EXTREMITIES: 1+ peripheral pulses with 1-2+ evidence of peripheral edema.. NEUROLOGIC patient is awake, alert and oriented 3 . - Labs CBC & Chem 7: 09/01/18 15:30 09/03/18 09:31 Labs: Abnormal Lab Results - Last 24 Hours (Table) 09/03/18 09/03/18 Range/Units 09:31 09:31 APTT 46.2 H (22.0-30.0) sec BUN 29 H (9-20) mg/dL Creatinine 2.43 H (0.66-1.25) mg/dL Glucose 101 H (74-99) mg/dL Calcium 8.3 L (8.4-10.2) mg/dL Assessment and Plan Plan: Assessment and plan #1 hyperkalemia, patient had been taking Aldactone and losartan at home. #2 hypertensive urgency #3 history of hypertension #4 acute renal failure #5 evidence of pulmonary embolism on VQ scan #6 abnormal BNP level, could be secondary to pulmonary embolism, could also represent mild congestive heart failure #7 abnormal troponins, not consistent with acute coronary syndrome, could be secondary to abnormal renal function and presence of pulmonary embolism. #8 asthma #9 sleep apnea #10 prior history of smoking, patient states he quit smoking 10 years ago #11 typical atrial flutter, new onset for the patient Plan His continue IV heparin and start the patient on Eliquis. Continue IV diuresis. Continue to monitor intake and output along with daily weights and daily lytes BUN and creatinine. DNP note has been reviewed, I agree with a documented findings and plan of care. Patient was seen and examined.
[2018-09-03 15:35] VITALS: BMI 48.6
--- NOTE | 2018-09-03 16:14 | P.PN ---
Subjective Progress Note Date: 09/03/18 Principal diagnosis: Progressive lower extremity edema. This is a morbidly obese 53-year-old -[place] male patient with known history of chronic bronchial asthma and obstructive sleep apnea. The patient has been maintained on Advair regarding his bronchial asthma. The patient is also is utilizing CPAP at a pressure of 17 cm of water for severe BARRERA. The patient has also chronic lower extremity edema. Recently was noted to have some increased swelling in lower extremities. He was also having some pain in his right lower extremity that was thought to be related to a sciatic pain. He came into the emergency department the patient was given nonsteroidal anti- inflammatory medication in the form of ibuprofen 800 mg to be taken 3 times a day. Following that, the patient started having some increased swelling in his lower extremities. He had some blood work at his primary care physician's office and he was asked to come into the hospital because of an abnormal electrolyte knowing that the patient's potassium level was apparently found to be elevated. There was also a component of an acute kidney injury. The patient came into the hospital and he had a BUN of 30 with a creatinine of 2.2. His sodium level was 141 with a potassium level of 5.8. His BNP level was 5002 100. 2 sets of troponins were sent and the levels were 0.03 and 0.04 and the last level came back at 0.04. A Doppler of the lower extremity was limited however he did not show any significant popping and lower extremities. There was no evidence of any DVT. VQ scan showed a right upper lobe mass defect. This was called to be of an intermediate probability. Despite this VQ scan findings, the patient denied having any worsening in his baseline shortness of breath. No cough. No sputum production. No pleurisy. No hemoptysis. He denies having any previous history of DVT or pulmonary embolism. His EKG showed atrial water with variable block. The patient was started on IV anticoagulation. He is doing better for now. He is utilizing his CPAP overnight. He quit smoking approximately 10 years ago. No history of diabetes. Most of hyperlipidemia. He is known to have hypertension and bronchial asthma is also within his history. The patient is seen again today 09/03/2018 in follow-up on the cardiac care unit. He is awake and alert in no acute distress. He denies any worsening shortness of breath, cough or congestion. No chest pain, palpitations lightheadedness or dizziness. He is maintaining good O2 saturations in the 90s on room air. He is afebrile. Hemodynamically stable. Ventricular rate well controlled. Ultrasound of the kidneys revealed no hydronephrosis or nephrolithiasis. Possible bilateral renal cysts. Creatinine 2.43. He has been transitioned to Eliquis. Objective - Vital Signs Vital signs: Vital Signs Temp 98 F 09/03/18 11:08 Pulse 83 09/03/18 11:08 Resp 18 09/03/18 11:08 BP 152/85 09/03/18 11:08 Pulse Ox 93 L 09/03/18 11:08 Intake & Output 09/02/18 09/03/18 09/03/18 18:59 06:59 18:59 Intake Total 1740 1184 Output Total 1600 1325 Balance 140 -1325 1184 Weight 167.2 kg 167.2 kg Intake: Intake, IV Titration 660 500 Amount Heparin Sod,Pork in 0.45% 500 500 NaCl 25,000 unit In 0.45 % NaCl 1 500ml.bag @ 13. 34 UNITS/KG/HR 45.98 mls/ hr IV .[id number] [facility] Rx#: [id number] Sodium Chloride 0.9% 1, 160 000 ml @ 100 mls/hr IV . Q10H ONE Rx#:[id number] Oral 1080 684 Output: Urine 1600 1325 Other: Voiding Method Urinal Urinal # Voids 1 2 - Exam Morbidly obese, comfortable in no acute distress. On room air. Head exam was generally normal. There was no scleral icterus or corneal arcus. Mucous membranes were moist. Neck was supple and without jugular venous distension, thyromegaly, or carotid bruits. Carotids were easily palpable bilaterally. There was no adenopathy. The patient has significant crowding of the posterior oropharynx and Mallampati class IV Lungs sounds are diminished in lung bases bilaterally was clear. Sounds equal and symmetrical. Few scattered expiratory wheezes and rhonchi upon forceful expiratory maneuvers. Heart sounds are irregular, distant, positive S1-S2 and there is some accentuation of the second heart sound. Abdominal exam revealed normal bowel sounds. The abdomen was soft, non-tender, and without masses, organomegaly, or appreciable enlargement of the abdominal aorta. Extremities revealed +1-2 bilateral pitting edema and there is no cyanosis or clubbing. No open wounds or sores. Examination of the skin revealed no evidence of significant rashes, suspicious appearing nevi or other concerning lesions. Neurologically awake and alert and is no focal logical deficits. - Labs CBC & Chem 7: 09/01/18 15:30 12 09:31 Labs: Abnormal Lab Results - Last 24 Hours (Table) 09/03/18 09/03/18 Range/Units 09:31 09:31 APTT 46.2 H (22.0-30.0) sec BUN 29 H (9-20) mg/dL Creatinine 2.43 H (0.66-1.25) mg/dL Glucose 101 H (74-99) mg/dL Calcium 8.3 L (8.4-10.2) mg/dL Assessment and Plan Assessment: Assessment 1 progressive lower extremity edema currently under investigation. The patient was on a combination of diuretics at home including Aldactone and Lasix. 2 acute kidney injury, probably related to a combination of diuretics and use of nonsteroidal anti-inflammatory medication. Currently off ibuprofen and diuretics have been discontinued also. 3 acute hyperkalemia secondary to MRSA, Aldactone and losartan 4 hypertension 5 obstructive sleep apnea maintained on CPAP therapy at a pressure of 17 cm of water 6 moderate degree of secondary pulmonary hypertension 7 preserved LV function based on her most recent echocardiogram with an ejection fraction of about 50% 8 intermediate probability VQ scan with low suspicion for pulmonary embolism and the Doppler of the lower extremity was negative and a d-dimer was also low 9 atrial flutter with variable block, rate controlled 10 bronchial asthma moderate persistent nature maintained on Advair on outpatient basis 11 BPH Plan we'll and The patient was seen and evaluated by Dr. Rubin. He remains stable from the pulmonary standpoint. Continue diuretics. He is now on Eliquis. The patient has chronic atrial flutter. We'll continue to follow and make further recommendations based on his clinical status. I, the cosigning physician, performed a history & physical examination of the patient. Lungs sounds faint end expiratory wheeze. Diminished. Maintaining good O2 saturations in the 90s on room air. I discussed the assessment and plan of care with my nurse practitioner, Alma Rosa Khan. I attest to the above note as dictated by her.
--- NOTE | 2018-09-03 18:54 | PN ---
PROGRESS NOTE DATE OF SERVICE: 09/03/2018 PRESENTING COMPLAINT: Hyperkalemia, edema. INTERVAL HISTORY: This patient was admitted with acute exacerbation of asthma, bilateral lower extremity venous insufficiency, acute renal failure, hyperkalemia, atrial flutter, ventricular rate. Patient is doing much better today. Sitting up. Did tolerate a diet. Looks more restful. Breathing is better. Heart rate is better controlled. Patient also received IV Lasix for fluid overload. REVIEW OF SYSTEMS: Done for constitutional, cardiovascular, GI, pulmonary; relevant findings as above. CURRENT MEDICATIONS: Reviewed. Patient is on Eliquis, IV Lasix. PHYSICAL EXAMINATION: Temperature 98, pulse 84, respiration 16, blood pressure 156/91, pulse 94% on room air. GENERAL APPEARANCE: Sitting on the edge of bed, looking more restful. EYES: Pupils equal. Conjunctivae normal. NECK: JVD unable to assess. Mass not palpable. RESPIRATORY: Effort increased. LUNGS: Decreased breath sounds. Improved air entry. CARDIOVASCULAR: Heart sounds irregular. Decreased edema. ABDOMEN: Soft, non-tender. Liver and spleen not palpable. PSYCHIATRY: Alert and oriented x3. Mood and affect normal. INVESTIGATIONS: Potassium 4.9, BUN 29, creatinine 2.43. Troponin 0.047. ASSESSMENT: 1. Acute moderate persistent asthma with acute exacerbation with clinical response. 2. Bilateral lower extremity edema, probably from venous insufficiency with some element of chronic edema. 3. Acute renal failure, possibly a combination of acute tubular necrosis and prerenal. Patient was on high dose of NSAIDs and Lasix. Need to rule out a chronic component. 4. Essential hypertension. 5. Obstructive sleep apnea. 6. Hyperkalemia in a setting of renal failure. 7. Morbid obesity with body mass index greater than 50. 8. Troponin leak with no cardiac symptoms in the setting of renal failure. No acute coronary syndrome. 9. Hypoalbuminemia secondary to renal failure. 10.Atrial flutter with variable rate; new diagnosis; now on Eliquis. 11.Hyperkalemia, corrected. 12.Congestive heart failure questionable at this point. Patient is on IV Lasix. PLAN: Continue current medication and treatment plan. Patient is on IV Lasix. Renal ultrasound results are noted. Awaiting input from Nephrology. Clinically patient appears to be better. Potassium is corrected. Care was discussed with the patient. MMODL / IJN: [id number] /
--- NOTE | 2018-09-03 19:57 | CONS ---
CONSULTATION REASON FOR CONSULTATION: Renal failure. HISTORY OF PRESENT ILLNESS: The patient is a 53-year-old -[place] male who was admitted to the hospital because of abnormal labs done as outpatient, mainly the potassium. Patient stated that he had been having right-sided abdominal and back pain, for which he was seen in the ER previously. Patient stated he had been having abdominal pain and back pain, for which he was evaluated, and he states he was started on ibuprofen for pain. Patient has noticed that his legs have been more swollen. He denies any prior history of renal failure. Patient states he has also been slightly more short of breath. He denied any chest pain. Serum creatinine was 2.25 mg/dL. It has gone up to 2.43. We do not have any previous labs available for comparison. Potassium was 5.8, and it is down to 4.9 now. At home, patient was also maintained on Aldactone along with potassium supplementation. Blood pressure has not been low; in fact, it is on the higher side. Patient denies any urinary symptoms. He is currently voiding and he states his urine output has improved since he has been in the hospital. Chest x-ray on initial admission showed mild pulmonary vascular congestion, and currently patient is maintained on IV Lasix for volume overload. Cozaar was also discontinued on admission. PAST MEDICAL HISTORY: 1. Hypertension. 2. Obesity. 3. BPH. 4. Morbid obesity. 5. Obstructive sleep apnea. PAST SURGICAL HISTORY: Tonsillectomy. SOCIAL HISTORY: The patient is a former smoker. No history of drug abuse or alcohol abuse. MEDICATIONS: Medications at home prior to admission included: 1. Losartan. 2. Motrin. 3. Lasix. 4. Advair. 5. Cardura. 6. Atenolol. 7. ProAir. 8. Aldactone. 9. Ultram. ALLERGIES: INCLUDE ENALAPRIL, which causes swelling, and FLU SHOT, type of reaction not known. REVIEW OF SYSTEMS: As per HPI. Other systems negative. PHYSICAL EXAMINATION: Patient is currently comfortable, awake, alert, oriented x3. He is not in any acute distress. Blood pressure was this morning 152/85, heart rate 83 per minute. Patient is afebrile. EXAMINATION OF THE HEART: S1, S2. EXAMINATION OF LUNGS: Bilateral breath sounds are heard. ABDOMEN: Soft, morbidly obese. Examination of lower extremities shows edema 2+ bilaterally. [employer] exam is grossly intact. LABS: Sodium of 141, potassium 4.9, chloride 107, BUN 29, serum creatinine 2.43. Troponin was 0.047. Hemoglobin was 11.9 g/dL. UA is not available. Echocardiogram showed ejection fraction 50% to 55% with severely dilated left atrium, mild pulmonary hypertension. Trivial pericardial effusion was also seen. ASSESSMENT: 1. Acute kidney injury associated with use of NSAIDs, currently nonoliguric. I will check a urinalysis. Ultrasound of the kidneys is unremarkable. There is no evidence of hydronephrosis or stones. There are 2 cysts noted bilaterally which appear to be benign. I agree with discontinuation of Cozaar. Continue off of IV fluids. Continue with Lasix. Repeat labs in a.m. and check urinalysis. 2. Possible chronic kidney disease. Previous labs not available for comparison. 3. Volume overload associated with salt and water retention with Motrin and underlying diastolic heart failure. 4. Mild pulmonary hypertension noted on echocardiogram. 5. Hyperkalemia associated with acute kidney injury, use of Aldactone and losartan, currently improved. Expect further improvement with use of loop diuretics. 6. Atrial flutter. 7. History of benign prostatic hypertrophy. 8. Indeterminate probability of pulmonary embolism on V/Q scan with low suspicion for pulmonary embolism, negative Dopplers of lower extremities for deep venous thrombosis. PLAN: Check urinalysis. Continue off of Cozaar and avoid NSAIDs. Continue Lasix. Repeat labs in a.m. We will try to obtain previous labs to assess patient's baseline renal function. Thank you for this consultation. We will continue to follow the patient with you during his hospitalization. MMODL / IJN: [id number] /
[2018-09-03] MEDS: DOXAZOSIN 4 MG TAB PO SCH (20:17)
[2018-09-03] MEDS: APIXABAN 2.5 MG TABLET PO SCH (20:17)
[2018-09-04 01:40] LABS: Appearance,Urine Clear (Clear); Bilirubin,Urine Negative (Negative); Blood,Urine Trace (Negative); Color,Urine Light Yellow; Glucose,Urine (UA) Negative (Negative); Ketones,Urine Negative (Negative); Leukocyte Esterase,Urine Negative (Negative); Mucus,Urine Rare /hpf; Nitrite,Urine Negative (Negative); Protein,Urine 2+ (Negative); Specific Gravity,Urine 1.005 (1.001-1.035); Squamous Epithelial Cell,Urine <1 /hpf (0-4); Urobilinogen,Urine <2.0 mg/dL (<2.0); WBC,Urine 1 /hpf (0-5)
[2018-09-04] MEDS: FUROSEMIDE 10 MG/ML 4 ML VIAL IV SCH ×2 (08:42→21:37)
[2018-09-04] MEDS: amLODIPine 10 MG TAB PO SCH (08:42)
[2018-09-04] MEDS: ASPIRIN 81 MG PO SCH (08:42)
[2018-09-04] MEDS: APIXABAN 2.5 MG TABLET PO SCH ×2 (08:42→21:37)
[2018-09-04] MEDS: HYDROCHLOROTHIAZIDE 25 MG TAB PO SCH (08:43)
[2018-09-04] MEDS: hydrALAZINE HCL 25 MG TAB PO SCH (08:47)
[2018-09-04] MEDS: SYMBICORT 160-4.5 MCG INHALER INHALATION SCH ×2 (08:53→20:31)
[2018-09-04] MEDS: traMADol 50 MG TAB PO PRN ×3 (08:55→23:13)
--- NOTE | 2018-09-04 11:21 | P.PN ---
Subjective Patient is seen in follow-up for acute kidney injury. Creatinine was 2.43 as of yesterday. No labs today. Edema is improving. He is maintained on IV Lasix 40 mg twice daily. No hematuria or dysuria. Patient states he was taking significant amounts of ibuprofen prior to admission for about 2 weeks duration for back pain. Currently he is not on any nephrotoxins. However he is noted to have proteinuria on UA. Vital signs are stable. General: The patient appeared well nourished and normally developed. HEENT: Head exam is unremarkable. Neck is without jugular venous distension. LUNGS: Lungs are clear to auscultation and percussion. Breath sounds decreased. HEART: Rate and Rhythm are regular. First and second heart sounds normal. No murmurs, rubs or gallops. ABDOMEN: Abdominal exam reveals normal bowel sounds. Non-tender and non- distended. No evidence of peritonitis. EXTREMITITES: 1+ edema. Objective - Vital Signs Vital signs: Vital Signs Temp 97.7 F 09/04/18 08:00 Pulse 84 09/04/18 08:00 Resp 20 09/04/18 08:00 BP 134/76 09/04/18 08:00 Pulse Ox 96 09/04/18 08:54 Intake & Output 09/03/18 09/04/18 09/04/18 18:59 06:59 18:59 Intake Total 1406 1200 240 Output Total 1350 600 Balance 1406 -150 -360 Weight 167.2 kg 162.9 kg Intake: Intake, IV Titration 500 Amount Heparin Sod,Pork in 0.45% 500 NaCl 25,000 unit In 0.45 % NaCl 1 500ml.bag @ 13. 34 UNITS/KG/HR 45.98 mls/ hr IV .[id number] [facility] Rx#: [id number] Oral 906 1200 240 Output: Urine 1350 600 Other: Voiding Method Urinal # Voids 2 - Labs CBC & Chem 7: 09/01/18 15:30 09/03/18 09:31 Labs: Abnormal Lab Results - Last 24 Hours (Table) 09/03/18 Range/Units 01:13 Urine Protein 2+ H (Negative) Urine Blood Trace H (Negative) Urine Mucus Rare H (None) /hpf Assessment and Plan Plan: Assessment: 1. Acute kidney injury secondary to ATN secondary to cardiorenal syndrome and nonsteroidals. Creatinine up to 2.43 as of yesterday. He is noted to have 2+ proteinuria on UA. No evidence of hydronephrosis noted on renal ultrasound. 2. Rule out chronic kidney disease. Unknown baseline creatinine at this time. 3. Diastolic CHF. 4. Volume overload. Improving with IV diuresis. 5. Hyperkalemia secondary to acute kidney injury, Aldactone and losartan. Resolved. 6. History of BPH. Plan: Maintain Lasix 40 mg IV twice daily. Quantify proteinuria. Check serologies. Continue to monitor renal function and urine output. Will consider kidney biopsy pending above results.
--- NOTE | 2018-09-04 13:53 | P.PN ---
Subjective Progress Note Date: 09/04/18 Principal diagnosis: Progressive lower extremity edema. This is a morbidly obese 53-year-old -[place] male patient with known history of chronic bronchial asthma and obstructive sleep apnea. The patient has been maintained on Advair regarding his bronchial asthma. The patient is also is utilizing CPAP at a pressure of 17 cm of water for severe BARRERA. The patient has also chronic lower extremity edema. Recently was noted to have some increased swelling in lower extremities. He was also having some pain in his right lower extremity that was thought to be related to a sciatic pain. He came into the emergency department the patient was given nonsteroidal anti- inflammatory medication in the form of ibuprofen 800 mg to be taken 3 times a day. Following that, the patient started having some increased swelling in his lower extremities. He had some blood work at his primary care physician's office and he was asked to come into the hospital because of an abnormal electrolyte knowing that the patient's potassium level was apparently found to be elevated. There was also a component of an acute kidney injury. The patient came into the hospital and he had a BUN of 30 with a creatinine of 2.2. His sodium level was 141 with a potassium level of 5.8. His BNP level was 5002 100. 2 sets of troponins were sent and the levels were 0.03 and 0.04 and the last level came back at 0.04. A Doppler of the lower extremity was limited however he did not show any significant popping and lower extremities. There was no evidence of any DVT. VQ scan showed a right upper lobe mass defect. This was called to be of an intermediate probability. Despite this VQ scan findings, the patient denied having any worsening in his baseline shortness of breath. No cough. No sputum production. No pleurisy. No hemoptysis. He denies having any previous history of DVT or pulmonary embolism. His EKG showed atrial water with variable block. The patient was started on IV anticoagulation. He is doing better for now. He is utilizing his CPAP overnight. He quit smoking approximately 10 years ago. No history of diabetes. Most of hyperlipidemia. He is known to have hypertension and bronchial asthma is also within his history. The patient is seen again today 09/03/2018 in follow-up on the cardiac care unit. He is awake and alert in no acute distress. He denies any worsening shortness of breath, cough or congestion. No chest pain, palpitations lightheadedness or dizziness. He is maintaining good O2 saturations in the 90s on room air. He is afebrile. Hemodynamically stable. Ventricular rate well controlled. Ultrasound of the kidneys revealed no hydronephrosis or nephrolithiasis. Possible bilateral renal cysts. Creatinine 2.43. He has been transitioned to Eliquis. The patient is seen today 09/04/2018 in follow-up on the cardiac care unit. He is currently sitting up in bed. He is awake and alert in no acute distress. He denies any worsening shortness of breath, cough or congestion. He is maintaining good O2 saturations in the 90s on room air. He remains on Symbicort and albuterol. He's been initiated on Eliquis. Objective - Vital Signs Vital signs: Vital Signs Temp 97.8 F 09/04/18 11:39 Pulse 84 09/04/18 11:39 Resp 18 09/04/18 11:39 BP 140/91 09/04/18 11:39 Pulse Ox 94 L 09/04/18 11:39 Intake & Output 09/03/18 09/04/18 09/04/18 18:59 06:59 18:59 Intake Total 1406 1200 240 Output Total 1350 600 Balance 1406 -150 -360 Weight 167.2 kg 162.9 kg Intake: Intake, IV Titration 500 Amount Heparin Sod,Pork in 0.45% 500 NaCl 25,000 unit In 0.45 % NaCl 1 500ml.bag @ 13. 34 UNITS/KG/HR 45.98 mls/ hr IV .[id number] COUNT INCLUDES THE [facility] Rx#: [id number] Oral 906 1200 240 Output: Urine 1350 600 Other: Voiding Method Urinal # Voids 2 - Exam Morbidly obese, comfortable in no acute distress. On room air. Head exam was generally normal. There was no scleral icterus or corneal arcus. Mucous membranes were moist. Neck was supple and without jugular venous distension, thyromegaly, or carotid bruits. Carotids were easily palpable bilaterally. There was no adenopathy. The patient has significant crowding of the posterior oropharynx and Mallampati class IV Lungs sounds are diminished in lung bases bilaterally was clear. Sounds equal and symmetrical. Few scattered expiratory wheezes and rhonchi upon forceful expiratory maneuvers. Heart sounds are irregular, distant, positive S1-S2 and there is some accentuation of the second heart sound. Abdominal exam revealed normal bowel sounds. The abdomen was soft, non-tender, and without masses, organomegaly, or appreciable enlargement of the abdominal aorta. Extremities revealed +1-2 bilateral pitting edema and there is no cyanosis or clubbing. No open wounds or sores. Examination of the skin revealed no evidence of significant rashes, suspicious appearing nevi or other concerning lesions. Neurologically awake and alert and is no focal logical deficits. - Labs CBC & Chem 7: 09/01/18 15:30 09/03/18 09:31 Labs: Abnormal Lab Results - Last 24 Hours (Table) 09/03/18 Range/Units 01:13 Urine Protein 2+ H (Negative) Urine Blood Trace H (Negative) Urine Mucus Rare H (None) /hpf Assessment and Plan Assessment: Assessment 1 progressive lower extremity edema currently under investigation. The patient was on a combination of diuretics at home including Aldactone and Lasix. 2 acute kidney injury, probably related to a combination of diuretics and use of nonsteroidal anti-inflammatory medication. Currently off ibuprofen and diuretics have been discontinued also. 3 acute hyperkalemia secondary to MRSA, Aldactone and losartan 4 hypertension 5 obstructive sleep apnea maintained on CPAP therapy at a pressure of 17 cm of water 6 moderate degree of secondary pulmonary hypertension 7 preserved LV function based on her most recent echocardiogram with an ejection fraction of about 50% 8 intermediate probability VQ scan with low suspicion for pulmonary embolism and the Doppler of the lower extremity was negative and a d-dimer was also low 9 atrial flutter with variable block, rate controlled. Initiated on Eliquis. 10 bronchial asthma moderate persistent nature maintained on Advair on outpatient basis 11 BPH Plan we'll and The patient was seen and evaluated by Dr. Rubin. He remains stable from the pulmonary standpoint. We will see the patient on as-needed basis. I, the cosigning physician, performed a history & physical examination of the patient. Lungs sounds faint end expiratory wheeze. Diminished. Maintaining good O2 saturations in the 90s on room air. I discussed the assessment and plan of care with my nurse practitioner, Alma Rosa Khan. I attest to the above note as dictated by her.
--- NOTE | 2018-09-04 15:58 | PN ---
PROGRESS NOTE This is an -[place] gentleman with a history of hypertensive heart disease. He has also developed some acute kidney injury. While he was here in the hospital, there is documented evidence of atrial flutter/fibrillation with a controlled rate, but he has converted to sinus rhythm this morning. He is resting comfortably, feels better. His edema of lower extremities has improved and his renal function is also showing modest improvement. He is resting comfortably at the time of my evaluation. His blood pressure control is not quite optimal at this time. On reviewing his data, his weight has also not significantly changed since he came to the hospital. I am recommending that we continue hydralazine at 50 mg t.i.d. to complement his blood pressure control. I will discontinue his aspirin 81 mg daily. He will be continued on apixaban 2.5 mg b.i.d. He is also on IV Lasix as advised by Nephrology. He has converted to sinus rhythm, but there is also a question of an intermediate probability pulmonary embolism on this patient, which I am not totally convinced with. We will therefore optimize blood pressure control. His echocardiogram revealed good systolic function and this was performed 2 days ago. There is probably some diastolic dysfunction, but overall systolic function is well preserved and there is no evidence of any pulmonary hypertension of significance. Patient has converted to sinus rhythm. MMODL / IJN: [id number] /
[2018-09-04] MEDS: hydrALAZINE HCL 50 MG TAB PO SCH ×2 (16:16→21:37)
--- NOTE | 2018-09-04 17:11 | P.PN ---
Subjective Progress Note Date: 09/04/18 Principal diagnosis: Mr. Mckeon is a 53-year-old male with a past medical history of asthma, hypertension, morbid obesity coming into the hospital with a chief complaint of increased swelling of his lower extremities. Patient states that he has chronic low back pain that radiates to his right lower extremity and so has been taking and a 6 800 mg 3-4 pills a day for the past couple of days. Then he noted 2 having the swelling of his lower extremities and he happened to get blood work at his primary care physician's office and his creatinine was found to be elevated and he was advised to go to the ER. In the ER patient had blood work showing acute kidney injury and also his blood pressure was very high at the time of admission and he had significant lower extremity swelling. Patient had Doppler of bilateral lower extremities that did not show acute DVT. A VQ scan was done which was showing intermediate probability. And the patient was also found to be in atrial fibrillation with rapid ventricular rate for which he has been started on heparin drip that was eventually changed to Eliquis. Today the patient is sitting up on his bed side appears to be no acute distress. He states that his lower extremity swelling and has getting much better. And that his blood pressure is under better control than when he came in here. On review of systems - Active Medications Albuterol Sulfate (Ventolin Nebulized) 2.5 mg INHALATION RT-QID PRN PRN Reason: Shortness Of Breath Last Admin: 09/03/18 07:58 Dose: 2.5 mg Amlodipine Besylate (Norvasc) 10 mg PO DAILY [facility] Last Admin: 09/04/18 08:42 Dose: 10 mg Apixaban (Eliquis) 2.5 mg PO BID [facility] Last Admin: 09/04/18 08:42 Dose: 2.5 mg Aspirin (Aspirin) 81 mg PO DAILY [facility] Last Admin: 09/04/18 08:42 Dose: 81 mg Budesonide/Formoterol Fumarate (Symbicort 160-4.5 Mcg Inhaler) 1 puff INHALATION RT-BID [facility] Last Admin: 09/04/18 08:53 Dose: 1 puff Doxazosin Mesylate (Cardura) 4 mg PO HS [facility] Last Admin: 09/03/18 20:17 Dose: 4 mg Furosemide (Lasix) 40 mg IV Q12HR [facility] Last Admin: 09/04/18 08:42 Dose: 40 mg Hydralazine HCl (Apresoline) 50 mg PO TID [facility]IGUEL ÁNGEL Last Admin: 09/04/18 16:16 Dose: 50 mg Tramadol HCl (Ultram) 50 mg PO TID PRN PRN Reason: Pain Last Admin: 09/04/18 16:16 Dose: 50 mg Patient denies having any fevers chills or rigors. No chest pain or palpitations. No cough or difficulty in breathing. No abdominal pain nausea vomiting or diarrhea. No dysuria or hematuria. Objective - Vital Signs Vital signs: Vital Signs Temp 97.8 F 09/04/18 16:00 Pulse 73 09/04/18 16:00 Resp 18 09/04/18 16:00 BP 146/91 09/04/18 16:00 Pulse Ox 91 L 09/04/18 16:00 Intake & Output 09/03/18 09/04/18 09/04/18 18:59 06:59 18:59 Intake Total 1406 1200 480 Output Total 1350 600 Balance 1406 -150 -120 Weight 167.2 kg 162.9 kg Intake: Intake, IV Titration 500 Amount Heparin Sod,Pork in 0.45% 500 NaCl 25,000 unit In 0.45 % NaCl 1 500ml.bag @ 13. 34 UNITS/KG/HR 45.98 mls/ hr IV .[id number] [facility] Rx#: [id number] Oral 906 1200 480 Output: Urine 1350 600 Other: Voiding Method Urinal # Voids 2 1 - Exam GENERAL EXAM GEN. APPEARANCE: alert, in no apparent distress HEAD EXAM: atraumatic, normocephalic, normal inspection EYE EXAM: normal appearance, PERRL, EOMI. Absent: scleral icterus, conjunctival injection, periorbital swelling ENT EXAM: normal exam, mucous membranes moist NECK EXAM: normal inspection. Absent: tenderness, meningismus, full ROM, lymphadenopathy RESPIRATORY EXAM: normal lung sounds bilaterally. Absent: respiratory distress , wheezes, rales, rhonchi, stridor CARDIOVASCULAR EXAM: regular rate, normal rhythm, normal heart sounds. Absent : systolic murmur, diastolic murmur, rubs, gallop, clicks GI/ABDOMINAL EXAM: soft, normal bowel sounds. Absent: distended, tenderness, guarding, rebound, rigid EXTREMITIES EXAM: Mild pitting edema bilaterally NEUROLOGICAL EXAM: alert, oriented X3, no focal neurological deficits PSYCHIATRIC EXAM: normal affect, normal mood SKIN EXAM: warm, dry, intact, normal color. Absent: rash - Labs CBC & Chem 7: 09/01/18 15:30 09/03/18 09:31 Labs: Abnormal Lab Results - Last 24 Hours (Table) 09/03/18 09/04/18 Range/Units 01:13 11:54 Urine Protein 2+ H (Negative) Urine Blood Trace H (Negative) Urine Mucus Rare H (None) /hpf U Random Total Protein 79 H (<12) mg/dL Assessment and Plan Assessment: ASSESSMENT Acute kidney injury - secondary to NSAID use/hypertensive urgency Hypertensive urgency Atrial fibrillation with rapid regular rate Acute hyperkalemia Intermediate probability of PE on VQ scan Mild persistent bronchial asthma BPH Morbid obesity with BMI 47.4 Plan: Patient's bilateral lower extremity edema is getting better after initiation of Lasix. He is AK I- creatinine is still around ~ 2 probably secondary to recent NSAID use and poorly controlled hypertension, nephrology on board and following the patient. We will continue with the current medication regimen. The treatment plan was discussed with the patient and his at the bedside in detail today. Further recommendations to follow depending on the progress of the patient.
[2018-09-04] MEDS: DOXAZOSIN 4 MG TAB PO SCH (21:37)
[2018-09-05 06:56] LABS: Calcium 8.9 mg/dL (8.4-10.2); Magnesium 1.7 mg/dL (1.6-2.3); Potassium 4.7 mmol/L (3.5-5.1)
[2018-09-05] MEDS: ASPIRIN 81 MG PO SCH (08:20)
[2018-09-05] MEDS: amLODIPine 10 MG TAB PO SCH (08:20)
[2018-09-05] MEDS: FUROSEMIDE 10 MG/ML 4 ML VIAL IV SCH ×2 (08:20→20:46)
[2018-09-05] MEDS: hydrALAZINE HCL 50 MG TAB PO SCH ×3 (08:20→22:54)
[2018-09-05] MEDS: traMADol 50 MG TAB PO PRN ×2 (08:20→20:46)
[2018-09-05] MEDS: APIXABAN 2.5 MG TABLET PO SCH ×2 (08:20→20:46)
[2018-09-05] MEDS: SYMBICORT 160-4.5 MCG INHALER INHALATION SCH ×2 (08:39→20:06)
[2018-09-05] MEDS ORDERED: MAGNESIUM SULFATE-D5W PMX 1 GM in DEXTROSE/WATER 1 100ML.BAG IVPB ONE (10:30)
--- NOTE | 2018-09-05 10:54 | P.PN ---
Subjective Patient is seen in follow-up for acute kidney injury. Creatinine a little improved to 2.26 today. Edema is improving. He is maintained on IV Lasix 40 mg twice daily. Has good urine output. No hematuria or dysuria. Patient states he was taking significant amounts of ibuprofen prior to admission for about 2 weeks duration for back pain. Currently he is not on any nephrotoxins. However he is noted to have proteinuria on UA. Serologies are pending. Vital signs are stable. General: The patient appeared well nourished and normally developed. HEENT: Head exam is unremarkable. Neck is without jugular venous distension. LUNGS: Lungs are clear to auscultation and percussion. Breath sounds decreased. HEART: Rate and Rhythm are regular. First and second heart sounds normal. No murmurs, rubs or gallops. ABDOMEN: Abdominal exam reveals normal bowel sounds. Non-tender and non- distended. No evidence of peritonitis. EXTREMITITES: 1+ edema. Objective - Vital Signs Vital signs: Vital Signs Temp 97.9 F 09/05/18 08:00 Pulse 91 09/05/18 08:00 Resp 20 09/05/18 08:00 BP 151/91 09/05/18 08:00 Pulse Ox 97 09/05/18 08:41 Intake & Output 09/04/18 09/05/18 09/05/18 18:59 06:59 18:59 Intake Total 924 10 250 Output Total 600 800 Balance 324 10 -550 Weight 159.3 kg Intake: IV 10 10 .9 10 Invasive Line 2 10 Oral 924 240 Output: Urine 600 800 Other: Voiding Method Urinal # Voids 1 - Labs CBC & Chem 7: 09/01/18 15:30 09/05/18 06:04 Labs: Abnormal Lab Results - Last 24 Hours (Table) 09/04/18 09/05/18 Range/Units 11:54 06:04 Carbon Dioxide 32 H (22-30) mmol/L BUN 27 H (9-20) mg/dL Creatinine 2.26 H (0.66-1.25) mg/dL Glucose 100 H (74-99) mg/dL U Random Total Protein 79 H (<12) mg/dL Assessment and Plan Plan: Assessment: 1. Acute kidney injury secondary to ATN secondary to cardiorenal syndrome and nonsteroidals. Creatinine better at 2.26 today. He is noted to have 2+ proteinuria on UA. UPC 2.6. No evidence of hydronephrosis noted on renal ultrasound. 2. Rule out chronic kidney disease. Unknown baseline creatinine at this time. 3. Diastolic CHF. 4. Volume overload. Improving with IV diuresis. 5. Hyperkalemia secondary to acute kidney injury, Aldactone and losartan. Resolved. 6. History of BPH. Plan: Maintain Lasix 40 mg IV twice daily. Follow-up serologies. Continue to monitor renal function and urine output. Will consider kidney biopsy pending above results.
[2018-09-05] MEDS ORDERED: METOPROLOL TARTRATE 50 MG TAB PO STA (12:31)
--- NOTE | 2018-09-05 14:31 | P.PN ---
Subjective Progress Note Date: 09/05/18 This is a morbidly obese 53-year-old -[place] male patient with known history of chronic bronchial asthma and obstructive sleep apnea. The patient has been maintained on Advair regarding his bronchial asthma. The patient is also is utilizing CPAP at a pressure of 17 cm of water for severe BARRERA. The patient has also chronic lower extremity edema. Recently was noted to have some increased swelling in lower extremities. He was also having some pain in his right lower extremity that was thought to be related to a sciatic pain. He came into the emergency department the patient was given nonsteroidal anti- inflammatory medication in the form of ibuprofen 800 mg to be taken 3 times a day. Following that, the patient started having some increased swelling in his lower extremities. He had some blood work at his primary care physician's office and he was asked to come into the hospital because of an abnormal electrolyte knowing that the patient's potassium level was apparently found to be elevated. There was also a component of an acute kidney injury. The patient came into the hospital and he had a BUN of 30 with a creatinine of 2.2. His sodium level was 141 with a potassium level of 5.8. His BNP level was 5002 100. 2 sets of troponins were sent and the levels were 0.03 and 0.04 and the last level came back at 0.04. A Doppler of the lower extremity was limited however he did not show any significant popping and lower extremities. There was no evidence of any DVT. VQ scan showed a right upper lobe mass defect. This was called to be of an intermediate probability. Despite this VQ scan findings, the patient denied having any worsening in his baseline shortness of breath. No cough. No sputum production. No pleurisy. No hemoptysis. He denies having any previous history of DVT or pulmonary embolism. His EKG showed atrial water with variable block. The patient was started on IV anticoagulation. He is doing better for now. He is utilizing his CPAP overnight. He quit smoking approximately 10 years ago. No history of diabetes. Most of hyperlipidemia. He is known to have hypertension and bronchial asthma is also within his history. The patient is seen again today 09/03/2018 in follow-up on the cardiac care unit. He is awake and alert in no acute distress. He denies any worsening shortness of breath, cough or congestion. No chest pain, palpitations lightheadedness or dizziness. He is maintaining good O2 saturations in the 90s on room air. He is afebrile. Hemodynamically stable. Ventricular rate well controlled. Ultrasound of the kidneys revealed no hydronephrosis or nephrolithiasis. Possible bilateral renal cysts. Creatinine 2.43. He has been transitioned to Eliquis. The patient is seen today 09/04/2018 in follow-up on the cardiac care unit. He is currently sitting up in bed. He is awake and alert in no acute distress. He denies any worsening shortness of breath, cough or congestion. He is maintaining good O2 saturations in the 90s on room air. He remains on Symbicort and albuterol. He's been initiated on Eliquis. On 09/05/2018, I'm seeing this patient for a follow-up no complaints. Is on oral anticoagulation with Eliquis. No nausea or vomiting. No chest pain or abdominal pain. No significant respiratory difficulties. His creatinine is improving is currently down to 2.26. And a BUN is at 32. No other significant events overnight. The patient would like to be discharged either today or tomorrow. Objective - Vital Signs Vital signs: Vital Signs Temp 98.3 F 09/05/18 12:00 Pulse 99 09/05/18 12:00 Resp 20 09/05/18 12:00 BP 152/86 09/05/18 12:00 Pulse Ox 92 L 09/05/18 12:00 Intake & Output 09/04/18 09/05/18 09/05/18 18:59 06:59 18:59 Intake Total 924 10 260 Output Total 600 800 Balance 324 10 -540 Weight 159.3 kg Intake: IV 10 20 .9 10 Invasive Line 2 20 Oral 924 240 Output: Urine 600 800 Other: Voiding Method Urinal # Voids 1 - Exam Morbidly obese, comfortable in no acute distress. On room air. Head exam was generally normal. There was no scleral icterus or corneal arcus. Mucous membranes were moist. Neck was supple and without jugular venous distension, thyromegaly, or carotid bruits. Carotids were easily palpable bilaterally. There was no adenopathy. The patient has significant crowding of the posterior oropharynx and Mallampati class IV Lungs sounds are diminished in lung bases bilaterally was clear. Sounds equal and symmetrical. Few scattered expiratory wheezes and rhonchi upon forceful expiratory maneuvers. Heart sounds are irregular, distant, positive S1-S2 and there is some accentuation of the second heart sound. Abdominal exam revealed normal bowel sounds. The abdomen was soft, non-tender, and without masses, organomegaly, or appreciable enlargement of the abdominal aorta. Extremities revealed +1-2 bilateral pitting edema and there is no cyanosis or clubbing. No open wounds or sores. Examination of the skin revealed no evidence of significant rashes, suspicious appearing nevi or other concerning lesions. Neurologically awake and alert and is no focal logical deficits. - Labs CBC & Chem 7: 09/01/18 15:30 09/05/18 06:04 Labs: Abnormal Lab Results - Last 24 Hours (Table) 09/04/18 09/05/18 Range/Units 11:54 06:04 Carbon Dioxide 32 H (22-30) mmol/L BUN 27 H (9-20) mg/dL Creatinine 2.26 H (0.66-1.25) mg/dL Glucose 100 H (74-99) mg/dL U Random Total Protein 79 H (<12) mg/dL Assessment and Plan Plan: Assessment 1 progressive lower extremity edema currently under investigation. The patient was on a combination of diuretics at home including Aldactone and Lasix. Lower extremity edema is improved. 2 acute kidney injury, probably related to a combination of diuretics and use of nonsteroidal anti-inflammatory medication. Currently off ibuprofen and diuretics have been discontinued also. Renal function continues to improve in the creatinine is down to 2.2 3 acute hyperkalemia secondary to MRSA, Aldactone and losartan, recovered and the potassium level is down to 4.7 4 hypertension 5 obstructive sleep apnea maintained on CPAP therapy at a pressure of 17 cm of water 6 moderate degree of secondary pulmonary hypertension 7 preserved LV function based on her most recent echocardiogram with an ejection fraction of about 50% 8 intermediate probability VQ scan with low suspicion for pulmonary embolism and the Doppler of the lower extremity was negative and a d-dimer was also low 9 atrial flutter with variable block, rate controlled 10 bronchial asthma moderate persistent nature maintained on Advair on outpatient basis 11 BPH Plan Continue request. Monitor renal function. Monitor creatinine. Monitor potassium level. Avoid nonsteroidal anti-inflammatory medication. Continue IV Lasix and transitioned this patient oral Lasix at a time of discharge.
--- NOTE | 2018-09-05 15:00 | P.PN ---
Subjective Progress Note Date: 09/05/18 Principal diagnosis: CHF exacerbation, MARION Mr. Mckeon is a 53-year-old male with a past medical history of asthma, hypertension, morbid obesity coming into the hospital with a chief complaint of increased swelling of his lower extremities. Patient states that he has chronic low back pain that radiates to his right lower extremity and so has been taking and a 6 800 mg 3-4 pills a day for the past couple of days. Then he noted 2 having the swelling of his lower extremities and he happened to get blood work at his primary care physician's office and his creatinine was found to be elevated and he was advised to go to the ER. In the ER patient had blood work showing acute kidney injury and also his blood pressure was very high at the time of admission and he had significant lower extremity swelling. Patient had Doppler of bilateral lower extremities that did not show acute DVT. A VQ scan was done which was showing intermediate probability. And the patient was also found to be in atrial fibrillation with rapid ventricular rate for which he has been started on heparin drip that was eventually changed to Eliquis. On 09/05/18 - Today the patient is sitting up on his bed side appears to be no acute distress. He states that his lower extremity swelling is still there. On review of systems - Constitutional-no fever chills or rigors. Cardiovascular-no chest pain or palpitations. Still has lower extremity edema. Respiratory-no difficulty in breathing or cough. GI-no abdominal pain nausea vomiting or diarrhea. Objective - Vital Signs Vital signs: Vital Signs Temp 98.3 F 09/05/18 12:00 Pulse 99 09/05/18 12:00 Resp 20 09/05/18 12:00 BP 152/86 09/05/18 12:00 Pulse Ox 92 L 09/05/18 12:00 Intake & Output 09/04/18 09/05/18 09/05/18 18:59 06:59 18:59 Intake Total 924 10 260 Output Total 600 800 Balance 324 10 -540 Weight 159.3 kg Intake: IV 10 20 .9 10 Invasive Line 2 20 Oral 924 240 Output: Urine 600 800 Other: Voiding Method Urinal # Voids 1 - Exam GEN. APPEARANCE: alert, in no apparent distress HEAD EXAM: atraumatic, normocephalic, normal inspection EYE EXAM:no pallor. No icterus. ENT EXAM: normal exam, mucous membranes moist NECK EXAM: no JVD. RESPIRATORY EXAM:bilateral breath sounds are positive. No wheeze or crackles. CARDIOVASCULAR EXAM: S1-S2 heard. No additional sounds. GI/ABDOMINAL EXAM: soft, normal bowel sounds. Absent: distended, tenderness, guarding, rebound, rigid EXTREMITIES EXAM: Mild pitting edema bilaterally NEUROLOGICAL EXAM: alert, oriented X3, no focal neurological deficits PSYCHIATRIC EXAM: normal affect, normal mood SKIN EXAM: warm, dry, intact, normal color. Absent: rash - Labs CBC & Chem 7: 09/01/18 15:30 09/05/18 06:04 Labs: Abnormal Lab Results - Last 24 Hours (Table) 09/04/18 09/05/18 Range/Units 11:54 06:04 Carbon Dioxide 32 H (22-30) mmol/L BUN 27 H (9-20) mg/dL Creatinine 2.26 H (0.66-1.25) mg/dL Glucose 100 H (74-99) mg/dL U Random Total Protein 79 H (<12) mg/dL Assessment and Plan Assessment: ASSESSMENT Acute kidney injury - secondary to NSAID use/hypertensive urgency Diastolic heart failure Hypertensive urgency Atrial fibrillation with rapid regular rate Acute hyperkalemia - resolved Intermediate probability of PE on VQ scan Mild persistent bronchial asthma BPH Morbid obesity with BMI 47.4 Plan: Patient's bilateral lower extremity edema is getting better after initiation of Lasix. He is AK I- creatinine is still around ~ 2 probably secondary to recent NSAID use and poorly controlled hypertension, nephrology on board and following the patient. creatinine is slowly trending down. We will continue with the current medication regimen. The treatment plan was discussed with the patient and his at the bedside in detail today. Further recommendations to follow depending on the progress of the patient.
--- NOTE | 2018-09-05 15:56 | PN ---
PROGRESS NOTE Mr. Mckeon is a gentleman with acute kidney injury. Paroxysmal atrial fib, maintaining sinus rhythm. Breathing easier. His weight is less. His breathing is easier and he denies any chest discomfort. His edema has improved. I am recommending that we add Lopressor 25 mg b.i.d. to his regimen. Blood pressure is 150/84, pulse rate is about 90. There is JVD of 1 cm. No carotid bruit. S1-S2 heard normally. Short systolic murmur audible. Heart rate is regular. Lungs reveal diminished air entry over both bases. Abdomen is soft, nontender. Lower extremities reveal edema but there is improvement compared to yesterday. Rest of physical examination is unchanged. Plan is to add a beta tico. Continue other medications and his creatinine is also improved. We will continue Eliquis at the current dose of 2.5 mg b.i.d. MMODL / IJN: [id number] /
[2018-09-05] MEDS: METOPROLOL TARTRATE 25 MG TAB PO SCH (20:46)
[2018-09-05] MEDS: DOXAZOSIN 4 MG TAB PO SCH (20:46)
[2018-09-06 08:08] LABS: Basophils % (A) 0 %; Eosinophils # (A) 0.2 k/uL (0-0.7); Eosinophils % (A) 4 %; Hypochromasia Slight; Lymphocytes # (A) 0.7 k/uL (1.0-4.8); Lymphocytes % (A) 14 %; MCH 26.7 pg (25.0-35.0); MCHC 31.7 g/dL (31.0-37.0); MCV 84.3 fL (80.0-100.0); Mean Platelet Volume 7.1; Monocytes # (A) 0.3 k/uL (0-1.0); Monocytes % (A) 7 %; Neutrophils # (A) 3.6 k/uL (1.3-7.7); Neutrophils % (A) 73 %; Platelet Count 186 k/uL (150-450); RBC 4.86 m/uL (4.30-5.90); RDW 13.9 % (11.5-15.5); WBC 4.9 k/uL (3.8-10.6)
[2018-09-06 08:22] LABS: Calcium 8.8 mg/dL (8.4-10.2)
[2018-09-06] MEDS: SYMBICORT 160-4.5 MCG INHALER INHALATION SCH (08:50)
[2018-09-06 09:22] LABS: Protein, Total 5.4 g/dL (6.2-8.2)
[2018-09-06] MEDS ORDERED: METOPROLOL TARTRATE 50 MG TAB PO SCH (09:30)
[2018-09-06] MEDS ORDERED: amLODIPine 5 MG TAB PO SCH (09:30)
[2018-09-06] MEDS: hydrALAZINE HCL 50 MG TAB PO SCH ×2 (10:10→15:48)
[2018-09-06] MEDS: APIXABAN 2.5 MG TABLET PO SCH (10:10)
[2018-09-06] MEDS: traMADol 50 MG TAB PO PRN (10:10)
[2018-09-06] MEDS: ASPIRIN 81 MG PO SCH (10:12)
[2018-09-06] MEDS: FUROSEMIDE 10 MG/ML 4 ML VIAL IV SCH (10:12)
[2018-09-06] MEDS: amLODIPine 10 MG TAB PO SCH (10:44)
[2018-09-06] MEDS: METOPROLOL TARTRATE 25 MG TAB PO SCH (10:45)
[2018-09-06 11:14] LABS: DNA Double-Stranded NEGATIVE (NEGATIVE)
[2018-09-06 11:21] VITALS: RESP 18
[2018-09-06 13:24] LABS: C-ANCA <1:20 Titer (<1:20); P-ANCA <1:20 Titer (<1:20)
[2018-09-06 14:25] LABS: Albumin 3.03 g/dL (3.80-4.90); Gamma Globulin 0.73 g/dL (0.70-1.50)
[2018-09-06 15:53] VITALS: BP 134/78; PULSE 79; TEMP 98.6
--- NOTE | 2018-09-06 15:56 | P.DS ---
Providers Date of admission: 09/01/18 18:48 Expected date of discharge: 09/06/18 Attending physician: Patrick Manuel Consults: 09/01/18 18:24 Consult Physician Stat Consulting Provider: Deny Rubin Consult Reason/Comments: PE Do you want consulting provider notified?: Yes Consult Physician Stat Consulting Provider: [facility] Consult Reason/Comments: CHF, elevated troponin Do you want consulting provider notified?: Yes 09/02/18 13:59 Consult Physician Routine Consulting Provider: Cassidy Church Consult Reason/Comments: abn renal function Do you want consulting provider notified?: Already Contacted 09/02/18 16:40 Consult Physician Routine Consulting Provider: Mehdi Church Consult Reason/Comments: renal failure Do you want consulting provider notified?: Yes Primary care physician: [facility] Hospital Course: Mr. Mckeon is a 53-year-old male with a past medical history of asthma, hypertension, morbid obesity coming into the hospital with a chief complaint of increased swelling of his lower extremities. Patient states that he has chronic low back pain that radiates to his right lower extremity and so has been taking and a 6 800 mg 3-4 pills a day for the past couple of days. Then he noted 2 having the swelling of his lower extremities and he happened to get blood work at his primary care physician's office and his creatinine was found to be elevated and he was advised to go to the ER. In the ER patient had blood work showing acute kidney injury and also his blood pressure was very high at the time of admission and he had significant lower extremity swelling. Patient had Doppler of bilateral lower extremities that did not show acute DVT. A VQ scan was done which was showing intermediate probability. And the patient was also found to be in atrial fibrillation with rapid ventricular rate for which he has been started on heparin drip that was eventually changed to Eliquis. During hospital stay patient had bilateral lower extremity Doppler, echocardiogram, V/Q scan, ultrasound of the abdomen. Cardiology, nephrology and pulmonary services followed the patient during the hospital stay. The patient's lower extremity edema slowly responded to IV Lasix and his kidney function also picked up. His creatinine is still elevated at 2.26, which might be his new baseline or may trend down in the next few days. Today on examination the patient is sleeping with his BiPAP machine on in his room. Patient states that his lower extremity swelling has improved markedly. He states that he is back to his normal self and wants to be discharged home today. 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 APPEARANCE: alert, in no apparent distress HEAD EXAM: atraumatic, normocephalic, normal inspection EYE EXAM:no pallor. No icterus. ENT EXAM: normal exam, mucous membranes moist NECK EXAM: no JVD. RESPIRATORY EXAM:bilateral breath sounds are positive. No wheeze or crackles. CARDIOVASCULAR EXAM: S1-S2 heard. No additional sounds. GI/ABDOMINAL EXAM: soft, normal bowel sounds. Absent: distended, tenderness, guarding, rebound, rigid EXTREMITIES EXAM: Mild pitting edema bilaterally NEUROLOGICAL EXAM: alert, oriented X3, no focal neurological deficits PSYCHIATRIC EXAM: normal affect, normal mood SKIN EXAM: warm, dry, intact, normal color. Absent: rash DISCHARGE DIAGNOSIS Acute kidney injury - secondary to NSAID use/hypertensive urgency Diastolic heart failure Hypertensive urgency Atrial fibrillation with rapid regular rate Acute hyperkalemia - resolved Intermediate probability of PE on VQ scan Mild persistent bronchial asthma BPH Morbid obesity with BMI 47.4 Plan: Patient is advised to avoid NSAID. He has been started on anticoagulation with a lock was. Losartan and atenolol has been discontinued. Patient was explained in detail the changes made in his medications. The new scripts have been sent to his pharmacy. Patient is advised to follow with his PCP and an appointment was made on the of this month and he is advised to keep up with it. He is also advised to follow-up with cardiology and nephrology within 1 week. More than 30 minutes spent towards the discharge of the patient. Patient Condition at Discharge: Stable Plan - Discharge Summary Discharge Rx Participant: No New Discharge Prescriptions: New amLODIPine [Norvasc] 5 mg PO DAILY #30 tab Apixaban [Eliquis] 2.5 mg PO BID #60 tablet Aspirin [Adult Low Dose Aspirin EC] 81 mg PO DAILY #30 tablet. Furosemide [Lasix] 40 mg PO BID #30 tablet hydrALAZINE HCL [Apresoline] 50 mg PO TID #90 tab Metoprolol Tartrate [Lopressor] 50 mg PO BID #60 tab Continue traMADol HCL [Ultram] 50 mg PO TID PRN PRN Reason: Pain Doxazosin [Cardura] 4 mg PO HS Fluticasone/Salmeterol [Advair 500-50 Diskus] 1 puff INHALATION RT-BID Albuterol Sulfate [Proair Hfa] 1 - 2 puff INHALATION RT-QID PRN PRN Reason: Shortness Of Breath Discontinued Ibuprofen [Motrin] 800 mg PO TID PRN PRN Reason: Pain Losartan Potassium 100 mg PO HS Furosemide [Lasix] 20 mg PO HS Atenolol 100 mg PO HS Spironolactone [Aldactone] 25 mg PO HS Discharge Medication List Albuterol Sulfate [Proair Hfa] 1 - 2 puff INHALATION RT-QID PRN 09/01/18 [ History] Doxazosin [Cardura] 4 mg PO HS 09/01/18 [History] Fluticasone/Salmeterol [Advair 500-50 Diskus] 1 puff INHALATION RT-BID 09/01/18 [History] traMADol HCL [Ultram] 50 mg PO TID PRN 09/01/18 [History] Apixaban [Eliquis] 2.5 mg PO BID #60 tablet 09/06/18 [Rx] Aspirin [Adult Low Dose Aspirin EC] 81 mg PO DAILY #30 tablet. 09/06/18 [Rx] Furosemide [Lasix] 40 mg PO BID #30 tablet 09/06/18 [Rx] Metoprolol Tartrate [Lopressor] 50 mg PO BID #60 tab 09/06/18 [Rx] amLODIPine [Norvasc] 5 mg PO DAILY #30 tab 09/06/18 [Rx] hydrALAZINE HCL [Apresoline] 50 mg PO TID #90 tab 09/06/18 [Rx] Follow up Appointment(s)/Referral(s): Williams Herring MD [Primary Care Provider] - 09/14/18 10:30 am (Thursday) Dennys Barrios MD [STAFF PHYSICIAN] - 1 Week Deny Rubin MD [STAFF PHYSICIAN] - 1 Week Patient Instructions/Handouts: A-fib (Atrial Fibrillation) (DC), Acute Kidney Injury (DC), Safe Use of Anticoagulants (DC) Discharge Disposition: HOME SELF-CARE
--- NOTE | 2018-09-06 16:18 | PN ---
PROGRESS NOTE Mr. Mckeon is a gentleman with a history of hypertension, hyperlipidemia, and acute renal injury. He seems to be doing better today. The edema is less. The swelling is decreased. However, the creatinine seems to be still elevated. His vital signs are stable. There is JVD of 1 cm. No carotid bruit. S1-S2 heard normally. Heart sounds are distant. Lungs reveal improved air entry. Abdomen exam is unremarkable. Lower extremity reveal improved edema. I am recommending that we decrease the dose of amlodipine for this patient and also increase Lopressor to 50 mg b.i.d., increase activity. He is on apixaban for paroxysmal atrial fibrillation, maintaining sinus rhythm. He can be discharged once his breathing is optimized and once it is okay with Nephrology. He can follow up with Dr. Barrios in 2 weeks. MMODL / IJN: [id number] /
--- NOTE | 2018-09-06 22:33 | PN ---
PROGRESS NOTE Patient is seen for followup for acute kidney injury. Patient is currently stable. His volume status is improved. Renal function is also stable; however, not improved since admission. Serum creatinine stays about 2.2 to 2.3 mg/dL. We do not have any previous labs available for comparison. UA did show evidence of proteinuria. All serologies were negative. Patient may need a kidney biopsy as outpatient. On examination, this morning, blood pressure was 158/84, heart rate 87 per minute. Patient is afebrile. EXAMINATION OF THE HEART: S1, S2. EXAMINATION OF LUNGS: Bilateral breath sounds are heard. Decreased breath sounds at the bases. ABDOMEN: Soft, obese, not tender. Examination of lower extremities shows edema 1+ bilaterally. Labs show sodium 135, potassium 5.0, BUN 27, serum creatinine 2.37, hemoglobin 13.0. ASSESSMENT: 1. Renal failure, most likely chronic with an element of acute kidney injury as well. Urine eosinophil was positive. Patient had been on NSAIDs prior to admission. We will likely proceed with a kidney biopsy as outpatient. Patient also has proteinuria and he is not a diabetic. Serologies are negative. 2. Hypertension. 3. Cardiomyopathy; ejection fraction 50% to 55% with severe concentric left ventricular hypertrophy and severely dilated left atrium. PLAN: Patient can be discharged. He should follow up as outpatient in about one week's time. We will consider kidney biopsy as outpatient. We will also try and obtain previous labs for comparison of his renal function and establishment of baseline. MMODL / IJN: [id number] /
--- NOTE | 2018-09-07 11:33 | CDI ---
Documentation Clarification Form Date: 09/07/2018 11:20:19 AM From: Janine Bartlett CCS, CCDS Admit Date: 09/01/2018 6:48:00 PM Patient Name: Jeremie Mckeon Visit Number: [id number] Discharge Date: 09/06/2018 6:22:00 PM ATTENTION: The Clinical Documentation Specialists (CDI) and [facility] Coding Staff appreciate your assistance in clarifying documentation. Please respond to the clarification below the line at the bottom and electronically sign. The CDI & [facility] Coding staff will review the response and follow-up if needed. Please note: Queries are made part of the Legal Health Record. If you have any questions, please contact the author of this message via ITS. Dr. Kemi Reyes: CHF is documented in the record as diastolic without acuity. Per the Summary: MARION secondary to NSAIDs/hypertensive urgency. Diastolic heart failure. Paroxysmal Atrial fibrillation w/RVR, Typical Atrial Flutter. Acute hyperkalemia & intermediate probability of PE on VQ scan. Mild persistent bronchial asthma (moderate per H/P). History/Risk Factors: Asthma, Hypertension, Morbid obesity w/BMI >45, Former smoker. Clinical Indicators: Presented to the ED with multiple complaints including abnormal lab finding from physician office (hyperkalemia), cough & congestion, bilateral leg swelling & back pain. VS/Pulse OX: P 96 - 115^, R 18-31^, BP 163/110^, PO 95 RA - 88 RA* BNP: 5200 Echocardiogram Results: Atrial fibrillation, severe concentric LVH, Systolic low normal w/EF 50-55%, Mild MR & TR, mild pulmonary hypertension. Chest X Ray 09/01: Mild pulmonary congestion w/o overt heart failure, Mild cardiomegaly. Treatment: Albuterol INH, IV heparin, IV Lasix, IV Heparin, Nitropaste, O2 2Lnc , Telemetry. In your professional opinion, can you please clarify the acuity of the Diastolic CHF if known? Diastolic Heart Failure: o Acute o Chronic o Acute on Chronic Unable to Determine Other, please specify Present on Admission: Yes or No (Last Revision: December 2017) Acute Diastolic heart failure MTDD
== END 2018-09-06 18:22 | disposition home or self-care (01) | DRG 682 ==
LOC: EC 14:48 → 3SCARD 18:48
PROVIDERS: ADMIT Hospitalist; ATTEND Hospitalist
PROC: 5A09557 Assistance with Respiratory Ventilation, Greater than 96 Consecutive Hours, Continuous Positive Airway Pressure (ICD-10-PCS; principal; 2018-09-01)
DX: N17.0 Acute kidney failure with tubular necrosis (principal); I50.31 Acute diastolic (congestive) heart failure; I48.3 Typical atrial flutter; Z68.42 Body mass index [BMI] 45.0-49.9, adult; J45.41 Moderate persistent asthma with (acute) exacerbation; I13.0 Hypertensive heart and chronic kidney disease with heart failure and stage 1 through stage 4 chronic kidney disease, or unspecified chronic kidney disease; I42.9 Cardiomyopathy, unspecified; E66.01 Morbid (severe) obesity due to excess calories; I27.29 Other secondary pulmonary hypertension; E87.5 Hyperkalemia; E88.09 Other disorders of plasma-protein metabolism, not elsewhere classified; I48.0 Paroxysmal atrial fibrillation; N28.1 Cyst of kidney, acquired; I16.0 Hypertensive urgency; T39.395A Adverse effect of other nonsteroidal anti-inflammatory drugs [NSAID], initial encounter; T50.0X5A Adverse effect of mineralocorticoids and their antagonists, initial encounter; I87.2 Venous insufficiency (chronic) (peripheral); E78.5 Hyperlipidemia, unspecified; G47.33 Obstructive sleep apnea (adult) (pediatric); M54.40 Lumbago with sciatica, unspecified side; N18.9 Chronic kidney disease, unspecified; G89.29 Other chronic pain; R77.8 Other specified abnormalities of plasma proteins; N40.0 Benign prostatic hyperplasia without lower urinary tract symptoms; Z71.3 Dietary counseling and surveillance; Z79.51 Long term (current) use of inhaled steroids; Z79.899 Other long term (current) drug therapy; Z87.891 Personal history of nicotine dependence; Z88.7 Allergy status to serum and vaccine; Z88.8 Allergy status to other drugs, medicaments and biological substances; Z91.048 Other nonmedicinal substance allergy status; Z82.5 Family history of asthma and other chronic lower respiratory diseases; Z81.8 Family history of other mental and behavioral disorders
CPT/HCPCS: 36415; 71046; 76770; 78582; 80048; 80053; 80061; 81001; 82550; 82553; 82570; 83735; 83880; 84156; 84165; 84484; 85025; 85379; 85730; 86038; 86160; 86162; 86225; 86255; 86334; 86335; 87205; 93005; 93306; 93970; 94640; 94660; 94760; 96361; 96365; 96375; 96376; 99285

== ENCOUNTER → 2018-09-11 | Outpatient (CLI) | payer BC | END | disposition home or self-care (01) | LOC: RADMRIMAIN 14:25 | PROVIDERS: ATTEND Nurse Practitioner Family | DX: Z53.9 Procedure and treatment not carried out, unspecified reason (principal) ==

== ENCOUNTER → 2018-10-08 | Outpatient (CLI) | payer BC ==
[2018-10-08 17:15] LABS: Basophils % (A) 0 %; Eosinophils # (A) 0.3 k/uL (0-0.7); Eosinophils % (A) 5 %; HCT 36.6 % (39.0-53.0); HGB 11.8 gm/dL (13.0-17.5); Lymphocytes # (A) 1.2 k/uL (1.0-4.8); Lymphocytes % (A) 20 %; MCH 26.8 pg (25.0-35.0); MCHC 32.2 g/dL (31.0-37.0); MCV 83.1 fL (80.0-100.0); Monocytes # (A) 0.3 k/uL (0-1.0); Monocytes % (A) 6 %; Neutrophils # (A) 4.1 k/uL (1.3-7.7); Neutrophils % (A) 68 %; Platelet Count 153 k/uL (150-450); RBC 4.41 m/uL (4.30-5.90); RDW 13.5 % (11.5-15.5)
[2018-10-09 02:23] LABS: Albumin 3.8 g/dL (3.80-4.90); Albumin/Globulin Ratio 1.9 (1.20-2.10); Anion Gap 5.8 mmol/L (4.00-12.00); Calcium 8.1 mg/dL (8.7-10.3); Carbon Dioxide 24.2 mmol/L (21.6-31.8); Potassium 4.9 mmol/L (3.5-5.5); Total Bilirubin 0.2 mg/dL (0.3-1.2); Total Protein 5.8 g/dL (6.2-8.2)
== END | disposition home or self-care (01) ==
LOC: LABWHC1 16:57
PROVIDERS: ATTEND Family Medicine
DX: N18.4 Chronic kidney disease, stage 4 (severe) (principal)
CPT/HCPCS: 36415; 80053; 85025

== ENCOUNTER → 2018-10-08 | Outpatient (CLI) | payer BC ==
--- NOTE | 2018-10-09 16:55 | US ---
EXAMINATION TYPE: US kidneys/renal and bladder DATE OF EXAM: 10/08/2018 COMPARISON: US dated 09/03/2018 CLINICAL HISTORY: N18.3 Chronic Stage III Kidney Disease. EXAM MEASUREMENTS: Right Kidney: 11.8 x 5.7 x 6.5 cm Left Kidney: 13.1 x 5.8 x 6.1 cm Technically difficult exam due to large patient body habitus. Right Kidney: multiple cysts, largest measures 2.7 x 2.2 x 1.9 cm Left Kidney: multiple cysts, largest measures 5.8 x 5.4 x 5.7 Bladder: wnl Bilateral Jets seen: No There is no evidence for hydronephrosis at this point in time. No nephrolithiasis is seen. The urina ry bladder is anechoic. Cortical medullary differentiation is maintained. Cortical echogenicity is increased as on prior exam . IMPRESSION: Multiple renal cysts again noted bilaterally. Findings compatible with renal failure. Exam is limited .
== END ==
LOC: RADUSWWP 16:13
PROVIDERS: ATTEND Family Medicine
DX: N28.1 Cyst of kidney, acquired (principal)
CPT/HCPCS: 76770

== ENCOUNTER → 2018-11-06 | Outpatient (CLI) | payer BC ==
[2018-11-06 12:57] LABS: HCT 37.3 % (39.0-53.0); HGB 11.2 gm/dL (13.0-17.5); Hypochromasia Slight; MCH 25.1 pg (25.0-35.0); MCHC 30.1 g/dL (31.0-37.0); MCV 83.2 fL (80.0-100.0); Mean Platelet Volume 7.2; Platelet Count 183 k/uL (150-450); RBC 4.48 m/uL (4.30-5.90); RDW 13.7 % (11.5-15.5); WBC 5.9 k/uL (3.8-10.6)
[2018-11-06 13:03] LABS: Amorphous Sediment,Urine Rare /hpf; Appearance,Urine Clear (Clear); Bilirubin,Urine Negative (Negative); Blood,Urine Negative (Negative); Color,Urine Yellow; Glucose,Urine (UA) Negative (Negative); Ketones,Urine Negative (Negative); Leukocyte Esterase,Urine Negative (Negative); Mucus,Urine Rare /hpf; Nitrite,Urine Negative (Negative); Protein,Urine 3+ (Negative); RBC,Urine 2 /hpf (0-5); Specific Gravity,Urine 1.013 (1.001-1.035); Urobilinogen,Urine <2.0 mg/dL (<2.0); WBC,Urine 2 /hpf (0-5)
[2018-11-06 16:37] LABS: Iron Saturation 26.75 (15.00-50.00)
[2018-11-06 16:45] LABS: Parathyroid Hormone Intact 287.4 pg/mL (14.0-72.0)
[2018-11-06 16:47] LABS: Albumin 3.9 g/dL (3.80-4.90); Albumin/Globulin Ratio 1.63 (1.60-3.17); Anion Gap 3.9 mmol/L (4.00-12.00); Calcium 8.7 mg/dL (8.7-10.3); Carbon Dioxide 27.1 mmol/L (21.6-31.8); Globulin 2.4 g/dL (1.6-3.3); Magnesium 1.9 mg/dL (1.5-2.4); Potassium 5.1 mmol/L (3.5-5.5); Total Bilirubin 0.4 mg/dL (0.3-1.2); Total Protein 6.3 g/dL (6.2-8.2); Uric Acid 6.2 mg/dL (3.7-8.7)
[2018-11-06 16:48] LABS: Vitamin D 25 Hydroxy 12.6 ng/mL (30.0-100.0)
[2018-11-06 23:37] LABS: Creatinine,Urine Random 117.4 mg/dL
[2018-11-06 23:38] LABS: Total Protein,Urine Random 340.6 mg/dL (0.0-13.5)
== END | disposition home or self-care (01) ==
LOC: LABWHC1 11:26
PROVIDERS: ATTEND Internal Medicine
DX: N18.9 Chronic kidney disease, unspecified (principal)
CPT/HCPCS: 36415; 80053; 81001; 82306; 82570; 82728; 83540; 83550; 83735; 83970; 84100; 84156; 84550; 85027

== ENCOUNTER 2019-09-26 15:04 | Inpatient (IN) | payer BC ==
[2019-09-26] MEDS ORDERED: IPRATROPIUM-ALBUTEROL 3 ML NEB INHALATION STA (17:21)
[2019-09-26] MEDS ORDERED: FUROSEMIDE 10 MG/ML 4 ML VIAL IV STA (17:22)
--- NOTE | 2019-09-26 17:26 | XR ---
EXAMINATION TYPE: XR chest 2V DATE OF EXAM: 09/26/2019 COMPARISON: 09/01/2018 HISTORY: Short of breath. Cough TECHNIQUE: FINDINGS: Heart is enlarged. There is pulmonary vascular congestion. There is slight blunting of the costophrenic angles. There are chest leads. Bony thorax is intact. IMPRESSION: There is mild congestive heart failure that is new compared to last exam. Cardiomegaly in creased compared to last exam.
--- NOTE | 2019-09-26 17:32 | ED ---
SOB HPI - General Chief Complaint: Shortness of Breath Stated Complaint: SOB Time Seen by Provider: 09/26/19 16:35 Source: patient, RN notes reviewed Mode of arrival: ambulatory Limitations: no limitations - History of Present Illness Initial Comments: This a 54-year-old male presents emergency Department from PCPs office chief complaint of dyspnea. Patient states that he's had increasing dyspnea over the last 1-2 weeks in which she's felt that he's had a cold. Patient states he has productive cough at times he does admit that he has orthopnea and he's had increased leg swelling. Patient admits that in 2 weeks he's had a 30 pound weight gain. Patient states that he has no official diagnosis of CHF though he states he was here one year ago for similar complaints. Patient does have chronic renal disease, does make urine currently. Patient also is a former smoker and has been on Advair and pro-air. denies any fevers or chills he states that it hurts to cough. Patient states he cannot ambulate short distances without feeling dyspneic and states that he has trouble completing sentences. - Related Data Home Medications Medication Instructions Recorded Confirmed Albuterol Sulfate [Proair Hfa] 1 - 2 puff INHALATION RT-QID PRN 09/01/18 09/01/18 Doxazosin [Cardura] 4 mg PO HS 09/01/18 09/01/18 Fluticasone/Salmeterol [Advair 1 puff INHALATION RT-BID 09/01/18 09/01/18 500-50 Diskus] traMADol HCL [Ultram] 50 mg PO TID PRN 09/01/18 09/01/18 Previous Rx's Medication Instructions Recorded Apixaban [Eliquis] 2.5 mg PO BID #60 tablet 09/06/18 Aspirin [Adult Low Dose Aspirin EC] 81 mg PO DAILY #30 tablet. 09/06/18 Furosemide [Lasix] 40 mg PO BID #30 tablet 09/06/18 Metoprolol Tartrate [Lopressor] 50 mg PO BID #60 tab 09/06/18 amLODIPine [Norvasc] 5 mg PO DAILY #30 tab 09/06/18 hydrALAZINE HCL [Apresoline] 50 mg PO TID #90 tab 09/06/18 Allergies Allergy/AdvReac Type Severity Reaction Status Date / Time enalapril Allergy Swelling Verified 09/26/19 16:05 feathers Allergy Unknown Verified 09/26/19 16:05 ibuprofen [From Motrin] Allergy Unknown Verified 09/26/19 16:05 Influenza Virus Vaccines Allergy Unknown Verified 09/26/19 16:05 Review of Systems ROS Statement: Those systems with pertinent positive or pertinent negative responses have been documented in the HPI. ROS Other: All systems not noted in ROS Statement are negative. Past Medical History Past Medical History: Asthma, Hypertension, Sleep Apnea/CPAP/BIPAP Additional Past Medical History / Comment(s): Chronic bronchial asthma, obstructive sleep apnea, obesity with a BMI 50.0, chronic lower extremity edema, hypertension, BPH, History of Any Multi-Drug Resistant Organisms: None Reported Past Surgical History: Tonsillectomy Past Anesthesia/Blood Transfusion Reactions: No Reported Reaction Past Psychological History: No Psychological Hx Reported Smoking Status: Former smoker Past Alcohol Use History: None Reported Past Drug Use History: None Reported - Past Family History Father Additional Family Medical History / Comment(s): dementia Mother Family Medical History: COPD General Exam Limitations: no limitations General appearance: alert, in no apparent distress Head exam: Present: atraumatic, normocephalic, normal inspection Eye exam: Present: normal appearance, PERRL, EOMI. Absent: scleral icterus, co njunctival injection, periorbital swelling ENT exam: Present: normal exam, normal oropharynx, mucous membranes moist Neck exam: Present: normal inspection, full ROM. Absent: tenderness, meningismus, lymphadenopathy Respiratory exam: Present: respiratory distress (Mild to moderate), wheezes, rales. Absent: normal lung sounds bilaterally, rhonchi, stridor Cardiovascular Exam: Present: regular rate, normal rhythm, normal heart sounds. Absent: systolic murmur, diastolic murmur, rubs, gallop, clicks GI/Abdominal exam: Present: soft, normal bowel sounds. Absent: distended, tenderness, guarding, rebound, rigid Extremities exam: Present: pedal edema (2+) Neurological exam: Present: alert Skin exam: Present: warm, dry, intact, normal color. Absent: rash Course Vital Signs 09/26/19 09/26/19 09/26/19 15:59 17:24 17:49 Temperature 98.5 F Pulse Rate 80 90 97 Respiratory 24 18 Rate Blood Pressure 157/71 120/87 O2 Sat by Pulse 89 L 93 L Oximetry 09/26/19 18:04 Temperature Pulse Rate 89 Respiratory Rate Blood Pressure O2 Sat by Pulse Oximetry Medical Decision Making - Medical Decision Making Patient is admitted to hospitalist for CHF, A4, hyperkalemia. - Lab Data Result diagrams: 09/26/19 17:23 09/26/19 17:23 Lab Results 09/26/19 09/26/19 09/26/19 Range/Units 17:23 17:23 17:23 WBC 5.0 (3.8-10.6) k/uL RBC 3.94 L (4.30-5.90) m/uL Hgb 10.1 L (13.0-17.5) gm/dL Hct 33.7 L (39.0-53.0) % MCV 85.3 (80.0-100.0) fL MCH 25.6 (25.0-35.0) pg MCHC 30.0 L (31.0-37.0) g/dL RDW 14.4 (11.5-15.5) % Plt Count 149 L (150-450) k/uL Neutrophils % 74 % Lymphocytes % 13 % Monocytes % 7 % Eosinophils % 3 % Basophils % 1 % Neutrophils # 3.7 (1.3-7.7) k/uL Lymphocytes # 0.7 L (1.0-4.8) k/uL Monocytes # 0.4 (0-1.0) k/uL Eosinophils # 0.2 (0-0.7) k/uL Basophils # 0.0 (0-0.2) k/uL Hypochromasia Marked PT 10.2 (9.0-12.0) sec INR 0.9 (<1.2) APTT 24.9 (22.0-30.0) sec Sodium 141 (137-145) mmol/L Potassium 5.8 H (3.5-5.1) mmol/L Chloride 111 H (98-107) mmol/L Carbon Dioxide 27 (22-30) mmol/L Anion Gap 3 mmol/L BUN 42 H (9-20) mg/dL Creatinine 3.40 H (0.66-1.25) mg/dL Est GFR (CKD-EPI)AfAm 22 (>60 ml/min/1.73 sqM) Est GFR (CKD-EPI)NonAf 19 (>60 ml/min/1.73 sqM) Glucose 111 H (74-99) mg/dL Calcium 8.2 L (8.4-10.2) mg/dL Total Bilirubin 0.4 (0.2-1.3) mg/dL AST 32 (17-59) U/L ALT 24 (4-49) U/L Alkaline Phosphatase 75 (38-126) U/L NT-Pro-B Natriuret Pep pg/mL Total Protein 6.0 L (6.3-8.2) g/dL Albumin 3.1 L (3.5-5.0) g/dL 09/26/19 Range/Units 17:23 WBC (3.8-10.6) k/uL RBC (4.30-5.90) m/uL Hgb (13.0-17.5) gm/dL Hct (39.0-53.0) % MCV (80.0-100.0) fL MCH (25.0-35.0) pg MCHC (31.0-37.0) g/dL RDW (11.5-15.5) % Plt Count (150-450) k/uL Neutrophils % % Lymphocytes % % Monocytes % % Eosinophils % % Basophils % % Neutrophils # (1.3-7.7) k/uL Lymphocytes # (1.0-4.8) k/uL Monocytes # (0-1.0) k/uL Eosinophils # (0-0.7) k/uL Basophils # (0-0.2) k/uL Hypochromasia PT (9.0-12.0) sec INR (<1.2) APTT (22.0-30.0) sec Sodium (137-145) mmol/L Potassium (3.5-5.1) mmol/L Chloride (98-107) mmol/L Carbon Dioxide (22-30) mmol/L Anion Gap mmol/L BUN (9-20) mg/dL Creatinine (0.66-1.25) mg/dL Est GFR (CKD-EPI)AfAm (>60 ml/min/1.73 sqM) Est GFR (CKD-EPI)NonAf (>60 ml/min/1.73 sqM) Glucose (74-99) mg/dL Calcium (8.4-10.2) mg/dL Total Bilirubin (0.2-1.3) mg/dL AST (17-59) U/L ALT (4-49) U/L Alkaline Phosphatase (38-126) U/L NT-Pro-B Natriuret Pep 9240 pg/mL Total Protein (6.3-8.2) g/dL Albumin (3.5-5.0) g/dL Critical Care Time Critical Care Time: Yes Total Critical Care Time: 35 Critical Care Time: Total of 35 minutes of critical care time is initiated Review past medical history, past medical records including labs, medications. Patient is found to be dyspneic secondary to CHF BMP or 9000 with chest x-ray changes. Patient was given Lasix, DuoNeb treatment at this time he did have some improvement currently on 3 L of oxygen which is improving his symptoms. Patient EKG shows atrial flutter with a rate of 87 QRS 84 QT/QTC 380/457. Patient is anticoagulated on Eliquis will be continued on Eliquis. Patient does have chronic renal failure will be admitted for acute CHF, hyperkalemia, a flutter. Disposition Clinical Impression: Hyperkalemia, Chronic renal failure, Atrial flutter Disposition: ADMITTED IP TO THIS HOSP Condition: Fair Referrals: Williams Herring MD [Primary Care Provider] - 1-2 days
[2019-09-26 17:56] LABS: Basophils % (A) 1 %; Eosinophils # (A) 0.2 k/uL (0-0.7); Eosinophils % (A) 3 %; HCT 33.7 % (39.0-53.0); HGB 10.1 gm/dL (13.0-17.5); Hypochromasia Marked; Lymphocytes # (A) 0.7 k/uL (1.0-4.8); Lymphocytes % (A) 13 %; MCH 25.6 pg (25.0-35.0); MCV 85.3 fL (80.0-100.0); Mean Platelet Volume 7.8; Monocytes # (A) 0.4 k/uL (0-1.0); Monocytes % (A) 7 %; Neutrophils # (A) 3.7 k/uL (1.3-7.7); Neutrophils % (A) 74 %; Platelet Count 149 k/uL (150-450); RBC 3.94 m/uL (4.30-5.90); RDW 14.4 % (11.5-15.5)
[2019-09-26 18:04] LABS: INR 0.9 (<1.2); Partial Thromboplastin Time 24.9 sec (22.0-30.0); Prothrombin Time 10.2 sec (9.0-12.0)
[2019-09-26 18:12] LABS: Albumin 3.1 g/dL (3.5-5.0); Calcium 8.2 mg/dL (8.4-10.2); Potassium 5.8 mmol/L (3.5-5.1); Total Bilirubin 0.4 mg/dL (0.2-1.3)
[2019-09-26] MEDS ORDERED: traMADol 50 MG TAB PO STA (19:40)
[2019-09-26] MEDS ORDERED: SODIUM POLYSTYRENE SULFONATE 15 GM/60 ML BOTTLE PO STA (22:18)
[2019-09-26] MEDS ORDERED: CALCIUM GLUCONATE 1 GM in SODIUM CHLORIDE 0.9% 100 ML IVPB ONE (22:18)
[2019-09-26] MEDS: METOPROLOL TARTRATE 50 MG TAB PO SCH (22:57)
[2019-09-26] MEDS: DOXAZOSIN 4 MG TAB PO SCH (22:57)
[2019-09-26] MEDS: hydrALAZINE HCL 50 MG TAB PO SCH (22:57)
[2019-09-26] MEDS: amLODIPine 10 MG TAB PO SCH (22:58)
[2019-09-26] MEDS: APIXABAN 2.5 MG TABLET PO SCH (22:58)
--- NOTE | 2019-09-26 23:10 | P.HPIM ---
History of Present Illness H&P Date: 09/26/19 The patient is a 54 yo M with a PMH of systolic CHF, Aflutter (on Eliquis), asthma, and HTN presented to the ED with complaints of gradually worsening SOB and LE edema. The patient notes that his symptoms started roughly 2 weeks ago and have gradually worsened since then. He reported worsening anasarca and a non-productive cough though denied chest pain, nausea, vomiting, diarphoresis, dizziness, palpitations, orthopnea, or PND. He endorsed gaining 30 lbs since onset of his symptoms. He reports compliance with his lasix and fluid restriction. He also denied fever, chills, abdominal pain, or diarrhea. The patient underwent an extensive evaluation in the ED with CXR showing fluid overload with increasing cardiomegaly. EKG revealed possible Aflutter with variable AV block @ 87 bpm. Laboratory evaluation revealed WBC count 5.0, hemoglobin 10.1, platelets 149, sodium 141, potassium 5.8, BNP 9240, chloride 111, CO2 27, BUN 42, creatinine 3.4, and glucose 111. The patient is being admitted to the medicine service for further management of acute CHF exacerbation. Review of Systems Pertinent positives and negatives as discussed in HPI, a complete review of systems was performed and all other systems are negative. Past Medical History Past Medical History: Asthma, Hypertension, Sleep Apnea/CPAP/BIPAP Additional Past Medical History / Comment(s): Chronic bronchial asthma, obstructive sleep apnea, obesity with a BMI 50.0, chronic lower extremity edema, hypertension, BPH, History of Any Multi-Drug Resistant Organisms: None Reported Past Surgical History: Tonsillectomy Past Anesthesia/Blood Transfusion Reactions: No Reported Reaction Past Psychological History: No Psychological Hx Reported Smoking Status: Former smoker Past Alcohol Use History: None Reported Past Drug Use History: None Reported - Past Family History Father Additional Family Medical History / Comment(s): dementia Mother Family Medical History: COPD Medications and Allergies Home Medications Medication Instructions Recorded Confirmed Type Albuterol Sulfate [Proair Hfa] 1 - 2 puff INHALATION RT-QID PRN 09/01/18 09/26/19 History Doxazosin [Cardura] 4 mg PO HS 09/01/18 09/26/19 History Fluticasone/Salmeterol [Advair 1 puff INHALATION RT-BID 09/01/18 09/26/19 History 500-50 Diskus] traMADol HCL [Ultram] 50 mg PO TID PRN 09/01/18 09/26/19 History Aspirin [Adult Low Dose Aspirin EC] 81 mg PO DAILY #30 tablet. 09/06/18 09/26/19 Rx Albuterol Nebulized [Ventolin 2.5 mg INHALATION Q4H 09/26/19 09/26/19 History Nebulized] Furosemide [Lasix] 40 mg PO BID@0900,2100 09/26/19 09/26/19 History Metoprolol Tartrate [Lopressor] 50 mg PO BID@0900,2100 09/26/19 09/26/19 History amLODIPine [Norvasc] 10 mg PO DAILY@2100 09/26/19 09/26/19 History hydrALAZINE HCL [Apresoline] 50 mg PO TID@0900,1600,2200 09/26/19 09/26/19 History Allergies Allergy/AdvReac Type Severity Reaction Status Date / Time enalapril Allergy Swelling Verified 09/26/19 19:30 feathers Allergy Unknown Verified 09/26/19 19:30 ibuprofen [From Motrin] Allergy Unknown Verified 09/26/19 19:30 Influenza Virus Vaccines Allergy Unknown Verified 09/26/19 19:30 Physical Exam Vitals: Vital Signs Temp Pulse Resp BP Pulse Ox 09/26/19 18:04 89 09/26/19 17:49 97 09/26/19 17:24 90 18 120/87 93 L 09/26/19 15:59 98.5 F 80 24 157/71 89 L Intake and Output 09/26/19 09/26/19 09/26/19 06:59 14:59 22:59 Other: Weight 175.404 kg General: non toxic, no distress, appears at stated age, morbidly obese Derm: no unusual rashes/lesions no unusual ecchymoses, warm, dry Head: atraumatic, normocephalic, symmetric Eyes: EOMI, no lid lag, anicteric sclera, pupils equal round reactive to light ENT: Nose and ears atraumatic, no thrush, no pharyngeal erythema Neck: No thyromegaly, no cervical lymphadenopathy, trachea midline, supple Mouth: no lip lesion, mucus membranes moist Cardiovascular: S1S2 reg, no murmur, positive posterior tibial pulse bilateral, anasarca with significant edema to abdomen, capillary refill less than 2 seconds Lungs: Mild bibasilar rales, no rhonchi, no accessory muscle use Abdominal: soft, nontender to palpation, no guarding, no appreciable organomegaly, normal bowel sounds Ext: no gross muscle atrophy, muscle strength 5 out of 5 in all 4 extremities grossly, no contractures, Neuro: CN II-XI grossly intact, light touch intact all 4 extremities, finger to nose within normal limits, Psych: Alert, oriented, appropriate affect Results CBC & Chem 7: 09/26/19 17:23 09/26/19 17:23 Labs: Abnormal Lab Results - Last 24 Hours (Table) 09/26/19 09/26/19 Range/Units 17:23 17:23 RBC 3.94 L (4.30-5.90) m/uL Hgb 10.1 L (13.0-17.5) gm/dL Hct 33.7 L (39.0-53.0) % MCHC 30.0 L (31.0-37.0) g/dL Plt Count 149 L (150-450) k/uL Lymphocytes # 0.7 L (1.0-4.8) k/uL Potassium 5.8 H (3.5-5.1) mmol/L Chloride 111 H (98-107) mmol/L BUN 42 H (9-20) mg/dL Creatinine 3.40 H (0.66-1.25) mg/dL Glucose 111 H (74-99) mg/dL Calcium 8.2 L (8.4-10.2) mg/dL Total Protein 6.0 L (6.3-8.2) g/dL Albumin 3.1 L (3.5-5.0) g/dL Assessment and Plan Plan: Acute systolic CHF exacerbation -C/w Lasix 40 mg IVP 12h -I/Os, Fluid restriction, daily weights -Cardiac monitoring Hyperkalemia -S/p Calcium gluconate -Administer 30 g Kayexalate -Monitor BMP MARION on CKD -Possibly due to cardio-renal syndrome -C/w lasix and monitor BMP Bicytopenia -Unknown etiology -Obtain retic count and anemia w/u -Likely due to chronic disease Chronic conditions: Asthma, HTN, Morbid obesity, BARRERA, Aflutter -C/w home meds DVT prophylaxis -Eliquis The patient is admitted with an anticipated greater than 2 midnight stay for evaluation of CHF exacerbation CODE STATUS: Full Code Discussed with: Patient Anticipated discharge date: 2-[address]: Home A total of 40 minutes was spent on the care of this complex patient more than 50% of the time was spent in counseling and care coordination.
[2019-09-27] MEDS: FUROSEMIDE 10 MG/ML 4 ML VIAL IV SCH ×2 (05:05→17:50)
[2019-09-27 07:27] LABS: Calcium 8.1 mg/dL (8.4-10.2); Potassium 5.8 mmol/L (3.5-5.1)
[2019-09-27 07:37] LABS: HCT 34.5 % (39.0-53.0); HGB 10.2 gm/dL (13.0-17.5); Hypochromasia Marked; MCH 25.4 pg (25.0-35.0); MCHC 29.4 g/dL (31.0-37.0); MCV 86.3 fL (80.0-100.0); Mean Platelet Volume 7.6; Platelet Count 156 k/uL (150-450); RDW 14.2 % (11.5-15.5); WBC 4.6 k/uL (3.8-10.6)
[2019-09-27] MEDS: APIXABAN 2.5 MG TABLET PO SCH ×2 (08:10→20:31)
[2019-09-27] MEDS: ASPIRIN 81 MG PO SCH (08:10)
[2019-09-27] MEDS: traMADol 50 MG TAB PO PRN ×2 (08:10→20:38)
[2019-09-27] MEDS: hydrALAZINE HCL 50 MG TAB PO SCH ×3 (08:10→20:30)
[2019-09-27] MEDS: METOPROLOL TARTRATE 50 MG TAB PO SCH ×2 (08:10→20:30)
[2019-09-27 08:12] LABS: Reticulocyte % 2.8 % (0.5-2.0)
[2019-09-27] MEDS: SYMBICORT 160-4.5 MCG INHALER INHALATION SCH ×2 (08:24→19:42)
[2019-09-27] MEDS ORDERED: METOPROLOL TARTRATE 50 MG TAB PO SCH (09:00)
[2019-09-27] MEDS ORDERED: hydrALAZINE HCL 50 MG TAB PO SCH (09:00)
--- NOTE | 2019-09-27 09:05 | P.CRDCN ---
History of Present Illness Consult date: 09/27/19 Requesting physician: Lucinda Loyola Chief complaint: Shortness of breath History of present illness: This is a 54-year-old -[place] gentleman with known history of hypertension, asthma, prior history of smoking, sleep apnea, chronic renal failure, patient does still make urine, admitted to the hospital with symptoms of progressively worsening shortness of breath and bilateral lower extremity edema. Chest x-ray on presentation here showed mild congestive heart failure which was new as compared with prior exam. His EKG on presentation here showed atypical atrial flutter. His heart rate was in the 80s. Patient does have a documented history of atypical atrial flutter in the past. He does not follow r egularly at our office. His primary care doctor is Dr. Mustafa. Blood pressure 136/102 with a heart rate of 108, 90% on 2 L of oxygen. Blood pressure this morning 192/115 with a heart rate of 70, 92% on 3 L of oxygen. White blood cell count 4.6, hemoglobin 10.2, platelet count 156, reticulocyte count 2.8, sodium 142, potassium 5.8, BUN 41, creatinine 3.5. BNP level 9240. Patient was initiated on IV Lasix in the emergency room and also reinitiated on his Norvasc, Eliquis, baby aspirin, Cardura, metoprolol. At the time of my examination, patient is quite sleepy, he does have history of sleep apnea and wears a CPAP. He has been diuresing well since his admission here. Past Medical History Past Medical History: Asthma, Hypertension, Sleep Apnea/CPAP/BIPAP Additional Past Medical History / Comment(s): Chronic bronchial asthma, obstructive sleep apnea, obesity with a BMI 50.0, chronic lower extremity edema, hypertension, BPH, History of Any Multi-Drug Resistant Organisms: None Reported Past Surgical History: Tonsillectomy Past Anesthesia/Blood Transfusion Reactions: No Reported Reaction Past Psychological History: No Psychological Hx Reported Smoking Status: Former smoker Past Alcohol Use History: None Reported Past Drug Use History: None Reported - Past Family History Father Additional Family Medical History / Comment(s): dementia Mother Family Medical History: COPD Medications and Allergies Home Medications Medication Instructions Recorded Confirmed Type Albuterol Sulfate [Proair Hfa] 1 - 2 puff INHALATION RT-QID PRN 09/01/18 09/26/19 History Doxazosin [Cardura] 4 mg PO HS 09/01/18 09/26/19 History Fluticasone/Salmeterol [Advair 1 puff INHALATION RT-BID 09/01/18 09/26/19 History 500-50 Diskus] traMADol HCL [Ultram] 50 mg PO TID PRN 09/01/18 09/26/19 History Aspirin [Adult Low Dose Aspirin EC] 81 mg PO DAILY #30 tablet.dr 09/06/18 09/26/19 Rx Albuterol Nebulized [Ventolin 2.5 mg INHALATION Q4H 09/26/19 09/26/19 History Nebulized] Furosemide [Lasix] 40 mg PO BID@0900,2100 09/26/19 09/26/19 History Metoprolol Tartrate [Lopressor] 50 mg PO BID@0900,2100 09/26/19 09/26/19 History amLODIPine [Norvasc] 10 mg PO DAILY@2100 09/26/19 09/26/19 History hydrALAZINE HCL [Apresoline] 50 mg PO TID@0900,1600,2200 09/26/19 09/26/19 History Allergies Allergy/AdvReac Type Severity Reaction Status Date / Time enalapril Allergy Swelling Verified 09/26/19 19:30 feathers Allergy Unknown Verified 09/26/19 19:30 ibuprofen [From Motrin] Allergy Unknown Verified 09/26/19 19:30 Influenza Virus Vaccines Allergy Unknown Verified 09/26/19 19:30 Physical Exam Vitals: Vital Signs Temp Pulse Pulse Resp BP BP Pulse Ox 09/27/19 07:59 97.1 F L 70 18 192/115 92 L 09/27/19 04:00 100 18 138/100 93 L 09/26/19 23:00 98.0 F 108 H 18 136/102 90 L 09/26/19 21:21 98.5 F 89 16 140/70 96 09/26/19 21:20 89 16 140/70 96 09/26/19 19:57 98 F 131 H 20 150/108 91 L 09/26/19 18:04 89 09/26/19 17:49 97 09/26/19 17:24 90 18 120/87 93 L 09/26/19 15:59 98.5 F 80 24 157/71 89 L Intake and Output 09/26/19 09/27/19 09/27/19 22:59 06:59 14:59 Intake Total 240 Output Total 200 450 Balance -200 -210 Intake: Oral 240 Output: Urine 200 450 Other: Voiding Method Urinal # Voids 1 2 Weight 175.404 kg 173 kg PHYSICAL EXAMINATION: GENERAL: 53-year-old morbidly obese -[place] gentleman in no acute distress at the time of my examination HEENT: Head is atraumatic, normocephalic. Pupils equal, round. Sclera a nicteric. Conjunctiva are clear. Mucous membranes of the mouth are moist. Neck is supple. There is elevated jugular venous pressure. No carotid bruit is heard. HEART EXAMINATION: Heart S1 and S2 irregularly irregular CHEST EXAMINATION: Lungs are clear with diminished air entry to the bases b ilaterally. ABDOMEN: Soft, obese nontender. Bowel sounds are heard. No organomegaly noted. EXTREMITIES: 1+ peripheral pulses with 2+ evidence of peripheral edema.. NEUROLOGIC patient is awake, alert and oriented 3 . Results 09/27/19 05:56 09/27/19 05:56 Cardiac Enzymes 09/26/19 Range/Units 17:23 AST 32 (17-59) U/L Coagulation 09/26/19 Range/Units 17:23 PT 10.2 (9.0-12.0) sec APTT 24.9 (22.0-30.0) sec CBC 09/26/19 09/27/19 Range/Units 17:23 05:56 WBC 5.0 4.6 (3.8-10.6) k/uL RBC 3.94 L 4.00 L (4.30-5.90) m/uL Hgb 10.1 L 10.2 L (13.0-17.5) gm/dL Hct 33.7 L 34.5 L (39.0-53.0) % Plt Count 149 L 156 (150-450) k/uL Comprehensive Metabolic Panel 09/26/19 09/27/19 Range/Units 17:23 05:56 Sodium 141 142 (137-145) mmol/L Potassium 5.8 H 5.8 H (3.5-5.1) mmol/L Chloride 111 H 108 H (98-107) mmol/L Carbon Dioxide 27 30 (22-30) mmol/L BUN 42 H 41 H (9-20) mg/dL Creatinine 3.40 H 3.58 H (0.66-1.25) mg/dL Glucose 111 H 89 (74-99) mg/dL Calcium 8.2 L 8.1 L (8.4-10.2) mg/dL AST 32 (17-59) U/L ALT 24 (4-49) U/L Alkaline Phosphatase 75 (38-126) U/L Total Protein 6.0 L (6.3-8.2) g/dL Albumin 3.1 L (3.5-5.0) g/dL Current Medications Generic Name Dose Route Start Last Admin Trade Name Freq PRN Reason Stop Dose Admin Amlodipine Besylate 10 mg 09/26/19 22:50 09/26/19 22:58 Norvasc PO 10 mg DAILY@2099 MIGUEL ÁNGEL Administration Apixaban 2.5 mg 09/26/19 21:00 09/27/19 08:10 Eliquis PO 2.5 mg BID MIGUEL ÁNGEL Administration Aspirin 81 mg 09/27/19 09:00 09/27/19 08:10 Aspirin PO 81 mg DAILY MIGUEL ÁNGEL Administration Budesonide/Formoterol Fumarate 2 puff 09/27/19 08:00 09/27/19 08:24 Symbicort 160-4.5 Mcg Inhaler INHALATION Not Given RT-BID MIGUEL ÁNGEL Doxazosin Mesylate 4 mg 09/26/19 23:00 09/26/19 22:57 Cardura PO 4 mg HS MIGUEL ÁNGEL Administration Furosemide 40 mg 09/27/19 06:00 09/27/19 05:05 Lasix IV 40 mg Q12H MIGUEL ÁNGEL Administration Hydralazine HCl 50 mg 09/26/19 22:51 09/27/19 08:10 Apresoline PO 50 mg TID@0900,1600,2200 MIGUEL ÁNGEL Administration Metoprolol Tartrate 50 mg 09/26/19 23:00 09/27/19 08:10 Lopressor PO 50 mg BID@0900,2100 MIGUEL ÁNGEL Administration Tramadol HCl 50 mg 09/26/19 22:24 09/27/19 08:10 Ultram PO 50 mg TID PRN Administration Pain Intake and Output 09/26/19 09/27/19 09/27/19 22:59 06:59 14:59 Intake Total 240 Output Total 200 450 Balance -200 -210 Intake: Oral 240 Output: Urine 200 450 Other: Voiding Method Urinal # Voids 1 2 Weight 175.404 kg 173 kg 09/27/19 05:56 09/27/19 05:56 EKG Interpretations (text) EKG shows an atypical atrial flutter with controlled ventricular response Assessment and Plan Plan: Assessment and plan #1 diastolic congestive heart failure acute on chronic. Patient's most recent echo was performed in August 2018 which revealed an ejection fraction of 50- 55%, the LAD was severely dilated at that time. #2 hypertension #3 asthma #4 prior history of smoking #5 history of atypical atrial flutter, patient currently in atrial flutter with controlled rate #6 obesity #7 acute on chronic renal failure #8 sleep apnea Plan We will repeat an echocardiogram with Doppler study, continue diuresing the pat ient with IV Lasix. Continue anticoagulation in the form of Eliquis. Along with the hydralazine we will start the patient on some nitrates. Continue metoprolol, patient is not currently on Aldactone because of elevated potassium, he is not on debbie her INR because of his renal failure. We'll continue to monitor the intake and output along with daily weights and daily lytes BUN and creatinine. Recommend a nephrology consultation. DNP note has been reviewed, I agree with a documented findings and plan of care. Patient was seen and examined.
[2019-09-27] MEDS: ISOSORBIDE MONONITRATE ER 60 MG TAB.ER.24H PO SCH (09:18)
--- NOTE | 2019-09-27 11:32 | P.PN ---
Subjective Progress Note Date: 09/27/19 Principal diagnosis: CHF exacerbation Patient was seen and examined. No acute events overnight. Currently on BiPAP. Patient reports considerable improvement in his breathing since admission. Patient states that he is not quite back to baseline. He endorses some lower extremity swelling. He denies any chest pain or palpitations. No nausea or vomiting. No fever or chills. Objective - Vital Signs Vital signs: Vital Signs Temp 97.1 F L 09/27/19 07:59 Pulse 70 09/27/19 07:59 Resp 18 09/27/19 08:00 BP 192/115 09/27/19 07:59 Pulse Ox 92 L 09/27/19 07:59 Intake & Output 09/26/19 09/27/19 09/27/19 18:59 06:59 18:59 Intake Total 240 Output Total 200 750 Balance -200 -510 Weight 175.404 kg 173 kg Intake: Oral 240 Output: Urine 200 750 Other: Voiding Method Urinal # Voids 1 2 - Exam General: [non toxic], [no distress], [appears at stated age] Derm: [warm], [dry] Head: [atraumatic], [normocephalic], [symmetric] Eyes: [EOMI], [no lid lag], [anicteric sclera] Mouth: [no lip lesion], [mucus membranes moist] Cardiovascular: [S1S2 reg], [irregularly regular], [positive DP pulse bilateral], Lungs: [Scattered rhonchi bilateral], [no accessory muscle use] Abdominal: [soft], [ nontender to palpation], [no guarding], [no appreciable organomegaly] Ext: [no gross muscle atrophy], [1+ lower wilfrido pitting edema], [no contractures] Neuro: [no focal neuro deficits] Psych: [Alert], [oriented], [appropriate affect] - Labs CBC & Chem 7: 09/27/19 05:56 09/27/19 05:56 Labs: Abnormal Lab Results - Last 24 Hours (Table) 09/26/19 09/26/19 09/27/19 Range/Units 17:23 17:23 05:56 RBC 3.94 L 4.00 L (4.30-5.90) m/uL Hgb 10.1 L 10.2 L (13.0-17.5) gm/dL Hct 33.7 L 34.5 L (39.0-53.0) % MCHC 30.0 L 29.4 L (31.0-37.0) g/dL Plt Count 149 L (150-450) k/uL Lymphocytes # 0.7 L (1.0-4.8) k/uL Retic Count 2.8 H (0.5-2.0) % Potassium 5.8 H (3.5-5.1) mmol/L Chloride 111 H (98-107) mmol/L BUN 42 H (9-20) mg/dL Creatinine 3.40 H (0.66-1.25) mg/dL Glucose 111 H (74-99) mg/dL Calcium 8.2 L (8.4-10.2) mg/dL Total Protein 6.0 L (6.3-8.2) g/dL Albumin 3.1 L (3.5-5.0) g/dL 09/27/19 Range/Units 05:56 RBC (4.30-5.90) m/uL Hgb (13.0-17.5) gm/dL Hct (39.0-53.0) % MCHC (31.0-37.0) g/dL Plt Count (150-450) k/uL Lymphocytes # (1.0-4.8) k/uL Retic Count (0.5-2.0) % Potassium 5.8 H (3.5-5.1) mmol/L Chloride 108 H (98-107) mmol/L BUN 41 H (9-20) mg/dL Creatinine 3.58 H (0.66-1.25) mg/dL Glucose (74-99) mg/dL Calcium 8.1 L (8.4-10.2) mg/dL Total Protein (6.3-8.2) g/dL Albumin (3.5-5.0) g/dL Assessment and Plan Assessment: Acute hypoxic respiratory failure Acute on chronic systolic CHF exacerbation Hyperkalemia Hypertensive urgency Acute kidney injury on possible chronic kidney disease Normocytic anemia Chronic conditions: Asthma, morbid obesity, BARRERA, Atrial flutter BNP 9240, chest x-ray showing mild congestive heart failure. Plans: Start diuresis with Lasix 40 mg IV twice a day. Strict intake and output take. Continue beta tico. Holding PURA inhibitor due to renal function. Strict intake and output take. Daily weights. Follow cardiology consultation. Follow-up echocardiogram. Plans: Management as above. Potassium 5.8. Given calcium gluconate. Given Kayexalate and albuterol neb treatment. Likely due to renal dysfunction. Plans: Repeat potassium at 12 PM. BP 192/115. Plans: Continue hydralazine 50 mg by mouth 3 times a day. Continue metoprolol. Imdur added by cardiology. Monitor vitals, adjust medications as necessary. Creatinine 3.40-3.58. Possible component of chronic kidney disease. Plans: Encourage hydration by mouth. Avoid nephrotoxins. Follow nephrology consultation. Hemoglobin 10.2. Reticulocyte count 2.8. Plans: Follow iron studies. Transfuse if hemoglobin less than 7. [Patient admitted for CHF exacerbation. Receiving IV diuresis. Cardiology on board. He is pending clinical improvement. Likely DC in 2-3 days.]
--- NOTE | 2019-09-27 12:48 | P.NPCON ---
History of Present Illness - Reason for Consult Consult date: 09/27/19 acute renal failure - Chief Complaint Shortness of breath - History of Present Illness 54-year-old -[place]i gentleman coming to the hospital with worsening shortness of breath for the last 3-4 weeks. He had episode of URTI/bronchitis since then started getting worse. Denies taking any antibiotics. No nausea vomiting or diarrhea. He takes Lasix 40 mg by mouth twice a day at home. Den ies noncompliance. No NSAID use. No recent contrast studies. He does have history of congestive heart failure and atrial fibrillation on eliquis. No history of diabetes., History of hypertension with an admission blood pressure of 192 systolic and 112 today. Chronic kidney disease stage III suspected nephrosclerosis/recurrent acute kidney injuries with a baseline creatinine of 2.0-2.1, admitted with a creatinine of 3.4, 3.58 today. Potassium persistently high about 5.8. Does not take any potassium supplements at home. Denies urinary retention. Out on debbie or ARB S or Aldactone. Review of Systems Constitutional: Reports as per HPI Past Medical History Past Medical History: Asthma, Hypertension, Sleep Apnea/CPAP/BIPAP Additional Past Medical History / Comment(s): Chronic bronchial asthma, obstructive sleep apnea, obesity with a BMI 50.0, chronic lower extremity edema, hypertension, BPH, History of Any Multi-Drug Resistant Organisms: None Reported Past Surgical History: Tonsillectomy Past Anesthesia/Blood Transfusion Reactions: No Reported Reaction Past Psychological History: No Psychological Hx Reported Smoking Status: Former smoker Past Alcohol Use History: None Reported Past Drug Use History: None Reported - Past Family History Father Additional Family Medical History / Comment(s): dementia Mother Family Medical History: COPD Medications and Allergies Home Medications Medication Instructions Recorded Confirmed Type Albuterol Sulfate [Proair Hfa] 1 - 2 puff INHALATION RT-QID PRN 09/01/18 09/26/19 History Doxazosin [Cardura] 4 mg PO HS 09/01/18 09/26/19 History Fluticasone/Salmeterol [Advair 1 puff INHALATION RT-BID 09/01/18 09/26/19 Histor y 500-50 Diskus] traMADol HCL [Ultram] 50 mg PO TID PRN 09/01/18 09/26/19 History Aspirin [Adult Low Dose Aspirin EC] 81 mg PO DAILY #30 tablet. 09/06/18 09/26/19 Rx Albuterol Nebulized [Ventolin 2.5 mg INHALATION Q4H 09/26/19 09/26/19 History Nebulized] Furosemide [Lasix] 40 mg PO BID@0900,2100 09/26/19 09/26/19 History Metoprolol Tartrate [Lopressor] 50 mg PO BID@0900,2100 09/26/19 09/26/19 History amLODIPine [Norvasc] 10 mg PO DAILY@209909/26/19 09/26/19 History hydrALAZINE HCL [Apresoline] 50 mg PO TID@0900,1600,2200 09/26/19 09/26/19 History Allergies Allergy/AdvReac Type Severity Reaction Status Date / Time enalapril Allergy Swelling Verified 09/26/19 19:30 feathers Allergy Unknown Verified 09/26/19 19:30 ibuprofen [From Motrin] Allergy Unknown Verified 09/26/19 19:30 Influenza Virus Vaccines Allergy Unknown Verified 09/26/19 19:30 Physical Exam Vitals: Vital Signs Temp Pulse Pulse Resp BP BP Pulse Ox 09/27/19 11:41 60 112/70 98 09/27/19 08:00 18 09/27/19 07:59 97.1 F L 70 18 192/115 92 L 09/27/19 04:00 100 18 138/100 93 L 09/26/19 23:00 98.0 F 108 H 18 136/102 90 L 09/26/19 21:21 98.5 F 89 16 140/70 96 09/26/19 21:20 89 16 140/70 96 09/26/19 19:57 98 F 131 H 20 150/108 91 L 09/26/19 18:04 89 09/26/19 17:49 97 09/26/19 17:24 90 18 120/87 93 L 09/26/19 15:59 98.5 F 80 24 157/71 89 L Intake and Output 09/26/19 09/27/19 09/27/19 22:59 06:59 14:59 Intake Total 240 Output Total 200 750 Balance -200 -510 Intake: Oral 240 Output: Urine 200 750 Other: Voiding Method Urinal # Voids 1 2 Weight 175.404 kg 173 kg No acute distress S1-S2 heard Decreased breath sounds Abdomen distended Edema Results - Lab Results Most recent lab results Calcium 8.1 mg/dL (8.4-10.2) L 09/27/19 05:56 09/27/19 05:56 09/27/19 05:56 Assessment and Plan Assessment: #1 nonoliguric acute kidney injury suspect type I cardiorenal syndrome. Normotensive ischemic ATN is also a possibility with a rapid fluctuation in blood pressure. #2 chronic kidney disease stage III secondary to suspected nephrosclerosis/recurrent acute kidney injuries with a baseline creatinine of 2.0-2.1 MG per DL. #3 volume overload suspect decompensated CHF. #4 hyperkalemia secondary to acute kidney injury. Rule out urinary retention #5 hypertension with chronic kidney disease. Plan: #1 continue with Lasix 40 mg IV twice a day. #2 medical management for hyperkalemia. #3 urine analysis and renal ultrasound. #4 avoid nephrotoxic agents and hypotensive episodes. #5 labs in the morning
[2019-09-27 14:03] VITALS: BMI 50.3
--- NOTE | 2019-09-27 14:08 | US ---
EXAMINATION TYPE: US kidneys/renal and bladder DATE OF EXAM: 09/27/2019 COMPARISON: US October 08, 2018 CLINICAL HISTORY: MARION. Abnormal labs EXAM MEASUREMENTS: Right Kidney: 10.0 x 4.9 x 4.7 cm Left Kidney: 12.4 x 6.4 x 5.2 cm Severely, morbidly obese pt, difficult exam Right Kidney: Multicystic, largest cyst at upper pole measured= 1.8 x 1.3 x 1.7 cm Left Kidney: Cyst medial, increased in size when compared to previous= 6.1 x 5.8 x 6.3 cm Bladder: difficult to visualize due to large pt body habitus Bilateral Jets seen: No Suboptimal study due to patient's large body habitus. Increased cortical echogenicity with scattered simple simple small cysts are likely present bilaterally. Bladder is poorly distended. No gross hydro nephrosis bilaterally.. IMPRESSION: Suboptimal study. Evidence of chronic medical renal disease. No hydronephrosis is clearly seen bilaterally.
[2019-09-27 14:56] LABS: Appearance,Urine Clear (Clear); Bilirubin,Urine Negative (Negative); Blood,Urine Trace (Negative); Color,Urine Yellow; Glucose,Urine (UA) Negative (Negative); Hyaline Casts,Urine 1 /lpf (0-2); Ketones,Urine Negative (Negative); Leukocyte Esterase,Urine Negative (Negative); Mucus,Urine Rare /hpf; Nitrite,Urine Negative (Negative); Protein,Urine 3+ (Negative); RBC,Urine 1 /hpf (0-5); Specific Gravity,Urine 1.016 (1.001-1.035); Squamous Epithelial Cell,Urine <1 /hpf (0-4); Urobilinogen,Urine <2.0 mg/dL (<2.0); WBC,Urine 1 /hpf (0-5)
--- NOTE | 2019-09-27 15:03 | ECHOF ---
Referral Reason:chf MEASUREMENTS -------- HEIGHT: 185.4 cm WEIGHT: 172.8 kg BP: 192/115 RVIDd: 5.3 cm (< 3.3) IVSd: 2.0 cm (0.6 - 1.1) LVIDd: 5.4 cm (3.9 - 5.3) LVPWd: 2.0 cm (0.6 - 1.1) IVSs: 2.8 cm LVIDs: 3.7 cm LVPWs: 2.5 cm LAESV Index (A-L): 56.66 ml/m Ao Diam: 4.1 cm (2.0 - 3.7) AV Cusp: 3.0 cm (1.5 - 2.6) LA Diam: 6.4 cm (2.7 - 3.8) RAP: 20.00 mmHg RVSP: 55.46 mmHg FINDINGS -------- Atrial fibrillation. This was a technically adequate study. The left ventricular size is normal. There is severe concentric left ventricular hypertrophy. The re is mild global hypokinesis of LV . Overall left ventricular systolic function is mildly impaired with, an EF between 45 - 50 %. False Tendon Visualized in the LV The right ventricle is severely enlarged. LA is severely dilated >40 ml/m2 The right atrium is mildly enlarged. Interatrial and interventricular septum intact. There is mild aortic valve sclerosis. There is no evidence of aortic regurgitation. Mild mitral annular calcification present. Moderate mitral regurgitation is present. Moderate tricuspid regurgitation present. There is moderate pulmonary hypertension. The right jennifer tricular systolic pressure, as measured by Doppler, is 55.46mmHg. There is no pulmonic regurgitation present. The aortic root size is normal. The inferior vena cava is dilated with no significant inspiratory collapse which is consistent estima rinku right atrial pressure of >20 mmHg. There is no pericardial effusion. CONCLUSIONS -------- 1. Atrial fibrillation. 2. This was a technically adequate study. 3. The left ventricular size is normal. 4. There is severe concentric left ventricular hypertrophy. 5. There is mild global hypokinesis of LV . 6. Overall left ventricular systolic function is mildly impaired with, an EF between 45 - 50 %. 7. False Tendon Visualized in the LV 8. The right ventricle is severely enlarged. 9. LA is severely dilated >40 ml/m2 10. The right atrium is mildly enlarged. 11. There is mild aortic valve sclerosis. 12. There is no evidence of aortic regurgitation. 13. Mild mitral annular calcification present. 14. Moderate mitral regurgitation is present. 15. Moderate tricuspid regurgitation present. 16. There is moderate pulmonary hypertension. 17. There is no pulmonic regurgitation present. 18. There is no pericardial effusion. CLOSET BUILDER: Kamryn Betts RDCS
[2019-09-27 17:02] LABS: % Iron Saturation 12.41 (15.00-50.00)
[2019-09-27 17:11] LABS: Ferritin 68.6 ng/mL (22.0-322.0)
[2019-09-27] MEDS: amLODIPine 10 MG TAB PO SCH (20:30)
[2019-09-27] MEDS: DOXAZOSIN 4 MG TAB PO SCH (20:31)
[2019-09-27] MEDS ORDERED: DOXAZOSIN 4 MG TAB PO SCH (21:00)
[2019-09-27] MEDS ORDERED: amLODIPine 10 MG TAB PO SCH (21:00)
[2019-09-28] MEDS: FUROSEMIDE 10 MG/ML 4 ML VIAL IV SCH (05:56)
[2019-09-28 06:14] LABS: Albumin 2.9 g/dL (3.5-5.0); Calcium 7.7 mg/dL (8.4-10.2); Potassium 5.1 mmol/L (3.5-5.1); Total Bilirubin 0.4 mg/dL (0.2-1.3); Total Protein 5.7 g/dL (6.3-8.2)
[2019-09-28 07:55] VITALS: TEMP 97.5
[2019-09-28] MEDS: traMADol 50 MG TAB PO PRN (08:59)
[2019-09-28] MEDS: ASPIRIN 81 MG PO SCH (09:00)
[2019-09-28] MEDS ORDERED: METOPROLOL TARTRATE 50 MG TAB PO SCH (09:00)
[2019-09-28] MEDS: hydrALAZINE HCL 50 MG TAB PO SCH (09:00)
[2019-09-28] MEDS: APIXABAN 2.5 MG TABLET PO SCH (09:00)
[2019-09-28] MEDS: ISOSORBIDE MONONITRATE ER 60 MG TAB.ER.24H PO SCH (09:00)
[2019-09-28 09:05] VITALS: BP 154/72; PULSE 55; RESP 16
[2019-09-28] MEDS: SYMBICORT 160-4.5 MCG INHALER INHALATION SCH (09:05)
--- NOTE | 2019-09-28 11:15 | P.DS ---
Providers Date of admission: 09/26/19 18:52 Expected date of discharge: 09/28/19 Attending physician: Lucinda Loyola DO Consults: 09/26/19 23:51 Consult Physician Routine Consulting Provider: Hieu Arevalo Consult Reason/Comments: heart failure Do you want consulting provider notified?: Yes, Notify in am 09/27/19 11:09 Consult Physician Routine Consulting Provider: Mehdi Church Consult Reason/Comments: Elevated Cr Do you want consulting provider notified?: Yes Primary care physician: [facility] Hospital Course: 54-year-old male with PMH of systolic CHF, atrial flutter on Eliquis, asthma and hypertension presented to the ED for shortness of breath and lower extremity edema. The patient underwent an extensive evaluation in the ED with CXR showing fluid overload with increasing cardiomegaly. EKG revealed possible Aflutter with variable AV block @ 87 bpm. Laboratory evaluation revealed WBC count 5.0, hemoglobin 10.1, platelets 149, sodium 141, potassium 5.8, BNP 9240, chloride 111, CO2 27, BUN 42, creatinine 3.4, and glucose 111. The patient is being admitted to the medicine service for further management of acute CHF exacerbation. With regard to his shortness of breath this is thought to be secondary to acute on chronic systolic CHF exacerbation. BNP was 9240 with chest x-ray showing mild congestive heart failure. He was started on diuresis with Lasix 40 mg IV twice a day. He was continued on beta tico. PURA inhibitor was held due to his renal function. Cardiology was consulted and recommended echocardiogram. Echocardiogram showed EF 45-50% with mild global hypokinesis of the LV. There is also severe concentric LVH. Patient was noted to be hyperkalemic with potassium of 5.8. He was given calcium gluconate, Kayexalate and albuterol neb treatment. Repeat potassium was within normal limits. Patient was noted to be in hypertensive urgency on admission. He was resumed on hydralazine home dose and Imdur was added by cardiology. He was also continued on his home dose of metoprolol. Nephrology was consulted for elevated creatinine. Creatinine was stable and ranged from 3.4-3.59 during his admission. Nephrology was consulted and recommended kidney and bladder ultrasound which showed chronic medical renal disease. Iron studies was ordered due to his anemia. Patient had a hemoglobin that ranged from 10.1-10.2, normocytic during his hospitalization. Iron studies showed decreased iron and low saturation percentage. Patient was seen and examined. No acute events overnight. Patient reports considerable improvement in his breathing. He denies any chest pain, shortness of breath or palpitations. No nausea or vomiting. No fever or chills. Requesting to go home today. General: [non toxic], [no distress], [appears at stated age] Derm: [warm], [dry] Head: [atraumatic], [normocephalic], [symmetric] Eyes: [EOMI], [no lid lag], [anicteric sclera] Mouth: [no lip lesion], [mucus membranes moist] Cardiovascular: [S1S2 reg], [irregularly regular], [positive DP pulse bilateral], Lungs: [Decreased breath sounds bilateral], [no accessory muscle use] Abdominal: [soft], [ nontender to palpation], [no guarding], [no appreciable organomegaly] Ext: [no gross muscle atrophy], [1+ lower extremity pitting edema], [no contractures] Neuro: [no focal neuro deficits] Psych: [Alert], [oriented], [appropriate affect] Acute hypoxic respiratory failure Acute on chronic systolic CHF exacerbation Hypertensive urgency Acute kidney injury on possible chronic kidney disease Normocytic anemia Chronic conditions: Asthma, morbid obesity, BARRERA, Atrial flutter BNP 9240, chest x-ray showing mild congestive heart failure. Echocardiogram shows EF 45-50% with global hypokinesis. Plans: Transition from Lasix IV to oral. Strict intake and output take. Continue beta tico. Restart PURA inhibitor on discharge. Strict intake and output take. Daily weights. Follow cardiology consultation. Plans: Management as above. BP 154/72. Plans: Continue hydralazine 50 mg by mouth 3 times a day. Continue metoprolol. Imdur added by cardiology. Monitor vitals, adjust medications as necessary. Creatinine 3.40-3.58-3.59. Possible component of chronic kidney disease. Plans: Encourage hydration by mouth. Avoid nephrotoxins. Follow nephrology consultation. Hemoglobin 10.2. Reticulocyte count 2.8. Iron study shows iron deficiency. Plans: Start ferrous sulfate. Transfuse if hemoglobin less than 7. [Patient admitted for CHF exacerbation. Improved. Requesting to go home. DC home today. Follow-up PCP within 3 days. Follow-up cardiology within 1 week.] Pertinent Studies: Chest x-ray, echocardiogram, bladder and kidney ultrasound Patient Condition at Discharge: Stable Plan - Discharge Summary Discharge Rx Participant: No New Discharge Prescriptions: New Apixaban [Eliquis] 2.5 mg PO BID #60 tablet Isosorbide Mononitrate ER [Imdur] 60 mg PO DAILY #30 tab.er.24h Ferrous Sulfate [Iron (65 MG Elemental)] 325 mg PO BID-W/MEALS #60 tab Metoprolol Tartrate [Lopressor] 75 mg PO BID@0900,2100 #60 tab Continue traMADol HCL [Ultram] 50 mg PO TID PRN PRN Reason: Pain Doxazosin [Cardura] 4 mg PO HS Fluticasone/Salmeterol [Advair 500-50 Diskus] 1 puff INHALATION RT-BID Albuterol Sulfate [Proair Hfa] 1 - 2 puff INHALATION RT-QID PRN PRN Reason: Shortness Of Breath Aspirin [Adult Low Dose Aspirin EC] 81 mg PO DAILY #30 tablet. hydrALAZINE HCL [Apresoline] 50 mg PO TID@0900,1600,2200 amLODIPine [Norvasc] 10 mg PO DAILY@2100 Albuterol Nebulized [Ventolin Nebulized] 2.5 mg INHALATION Q4H Furosemide [Lasix] 40 mg PO BID@0900,2100 #60 tab Discontinued Metoprolol Tartrate [Lopressor] 50 mg PO BID@0900,2100 Discharge Medication List Albuterol Sulfate [Proair Hfa] 1 - 2 puff INHALATION RT-QID PRN 09/01/18 [History] Doxazosin [Cardura] 4 mg PO HS 09/01/18 [History] Fluticasone/Salmeterol [Advair 500-50 Diskus] 1 puff INHALATION RT-BID 09/01/18 [History] traMADol HCL [Ultram] 50 mg PO TID PRN 09/01/18 [History] Aspirin [Adult Low Dose Aspirin EC] 81 mg PO DAILY #30 tablet. 09/06/18 [Rx] Albuterol Nebulized [Ventolin Nebulized] 2.5 mg INHALATION Q4H 09/26/19 [History] amLODIPine [Norvasc] 10 mg PO DAILY@209909/26/19 [History] hydrALAZINE HCL [Apresoline] 50 mg PO TID@0900,1600,2200 09/26/19 [History] Apixaban [Eliquis] 2.5 mg PO BID #60 tablet 09/28/19 [Rx] Ferrous Sulfate [Iron (65 MG Elemental)] 325 mg PO BID-W/MEALS #60 tab 09/28/19 [Rx] Furosemide [Lasix] 40 mg PO BID@899,2099 #60 tab 09/28/19 [Rx] Isosorbide Mononitrate ER [Imdur] 60 mg PO DAILY #30 tab.er.24h 09/28/19 [Rx] Metoprolol Tartrate [Lopressor] 75 mg PO BID@00,2099 #60 tab 09/28/19 [Rx] Follow up Appointment(s)/Referral(s): Williams Herring MD [Primary Care Provider] - 1-2 days Ingris Cox MD [STAFF PHYSICIAN] - 1 Week Activity/Diet/Wound Care/Special Instructions: Diet: Low-salt, renal Follow-up PCP within 2 days of discharge. Follow-up cardiology within 1 week of discharge. Take all medications as advised. Discharge Disposition: HOME SELF-CARE
--- NOTE | 2019-09-28 11:30 | P.PN ---
Subjective Progress Note Date: 09/28/19 Seen and examined for the follow-up of acute kidney injury. Lying comfortable in the bed using BiPAP. Still has lower extremity edema good urine output no nausea vomiting or diarrhea. Objective - Vital Signs Vital signs: Vital Signs Temp 97.5 F L 09/28/19 04:00 Pulse 55 L 09/28/19 08:00 Resp 16 09/28/19 08:00 BP 154/72 09/28/19 08:00 Pulse Ox 94 L 09/28/19 08:00 Intake & Output 09/27/19 09/28/19 09/28/19 18:59 06:59 18:59 Intake Total 420 200 Output Total 1440 920 Balance -1020 -720 Weight 173 kg 172.4 kg Intake: Oral 420 200 Output: Urine 1440 920 Other: # Voids 2 1 - Exam No acute distress Lying comfortable S1-S2 heard Decreased breath sounds Abdomen soft distended Edema - Labs CBC & Chem 7: 09/27/19 05:56 09/28/19 05:45 Labs: Abnormal Lab Results - Last 24 Hours (Table) 09/27/19 09/27/19 09/28/19 Range/Units 05:56 13:10 05:45 Chloride 108 H (98-107) mmol/L BUN 47 H (9-20) mg/dL Creatinine 3.59 H (0.66-1.25) mg/dL Calcium 7.7 L (8.4-10.2) mg/dL Iron 33 L (65-175) ug/dL % Saturation 12.41 L (15.00-50.00) Total Protein 5.7 L (6.3-8.2) g/dL Albumin 2.9 L (3.5-5.0) g/dL Urine Protein 3+ H (Negative) Urine Blood Trace H (Negative) Urine Mucus Rare H (None) /hpf Assessment and Plan Assessment: #1 nonoliguric acute kidney injury suspect type I cardiorenal syndrome. Progressive CKD is also a possibility with no previous nephrology care. #2 chronic kidney disease stage III secondary to suspected nephrosclerosis /recurrent acute kidney injuries with a baseline creatinine of 2.0-2.1 MG per DL. #3 volume overload suspect decompensated CHF. #4 hyperkalemia secondary to acute kidney injury. Rule out urinary retention #5 hypertension with chronic kidney disease. Plan: #1 continue with Lasix 40 mg IV twice a day. #2 hyperkalemia better with diuresis. #3 renal ultrasound noted multiple cysts bilaterally. #4 avoid nephrotoxic agents and hypotensive episodes. #5 quantify proteinuria.
--- NOTE | 2019-09-28 14:01 | P.PN ---
Subjective Patient is resting comfortably in bed. He is using his CPAP mask No orthopnea PND no chest discomfort does not appear to be short of breath His blood pressure was at the lower end of normal and therefore I reduce the dose of amlodipine to 5 mg by mouth daily Hallways atrial fibrillation rates were elevated and I increased metoprolol to 75 mg twice daily He is on low-dose apixaban Labs reviewed sodium 140, potassium 5.1, BUN 47 creatinine 3.59 On examination pulse rate 80-100 bpm Breath sounds are reduced bilaterally reduced air entry bilaterally Heart sounds are irregular Morbid obesity noted Impression chronic kidney disease GFR less than 30 Atrial fibrillation with RVR Obstructive sleep apnea Hypertension Suggest Reduce amlodipine to 5 mg by mouth daily Increase metoprolol to 75 mg twice daily Objective - Vital Signs Vital signs: Vital Signs Temp 97.5 F L 09/28/19 04:00 Pulse 55 L 09/28/19 08:00 Resp 16 09/28/19 12:00 BP 154/72 09/28/19 08:00 Pulse Ox 94 L 09/28/19 08:00 Intake & Output 09/27/19 09/28/19 09/28/19 18:59 06:59 18:59 Intake Total 420 200 480 Output Total 1440 920 500 Balance -1020 -720 -20 Weight 173 kg 172.4 kg Intake: Oral 420 200 480 Output: Urine 1440 920 500 Other: Voiding Method Urinal # Voids 2 1 1 - Labs CBC & Chem 7: 09/27/19 05:56 09/28/19 05:45 Labs: Abnormal Lab Results - Last 24 Hours (Table) 09/27/19 09/27/19 09/28/19 Range/Units 05:56 13:10 05:45 Chloride 108 H (98-107) mmol/L BUN 47 H (9-20) mg/dL Creatinine 3.59 H (0.66-1.25) mg/dL Calcium 7.7 L (8.4-10.2) mg/dL Iron 33 L (65-175) ug/dL % Saturation 12.41 L (15.00-50.00) Total Protein 5.7 L (6.3-8.2) g/dL Albumin 2.9 L (3.5-5.0) g/dL Urine Protein 3+ H (Negative) Urine Blood Trace H (Negative) Urine Mucus Rare H (None) /hpf
[2019-09-28] MEDS ORDERED: FERROUS SULFATE 325 MG TAB PO SCH (17:30)
[2019-09-28] MEDS ORDERED: amLODIPine 5 MG TAB PO SCH (21:00)
== END 2019-09-28 16:09 | disposition home or self-care (01) | DRG 291 ==
LOC: EC 15:04 → 3SCARD 18:52
PROVIDERS: ADMIT Internal Medicine; ATTEND Internal Medicine
PROC: 5A09357 Assistance with Respiratory Ventilation, Less than 24 Consecutive Hours, Continuous Positive Airway Pressure (ICD-10-PCS; principal; 2019-09-27)
DX: I13.0 Hypertensive heart and chronic kidney disease with heart failure and stage 1 through stage 4 chronic kidney disease, or unspecified chronic kidney disease (principal); J96.01 Acute respiratory failure with hypoxia; I50.23 Acute on chronic systolic (congestive) heart failure; I48.4 Atypical atrial flutter; N17.9 Acute kidney failure, unspecified; Z68.43 Body mass index [BMI] 50.0-59.9, adult; D64.9 Anemia, unspecified; E66.01 Morbid (severe) obesity due to excess calories; E87.5 Hyperkalemia; G47.33 Obstructive sleep apnea (adult) (pediatric); I16.0 Hypertensive urgency; I48.91 Unspecified atrial fibrillation; J45.909 Unspecified asthma, uncomplicated; N18.3 Chronic kidney disease, stage 3 (moderate); N40.0 Benign prostatic hyperplasia without lower urinary tract symptoms; Z79.01 Long term (current) use of anticoagulants; Z79.82 Long term (current) use of aspirin; Z79.899 Other long term (current) drug therapy; Z88.6 Allergy status to analgesic agent; Z88.7 Allergy status to serum and vaccine; Z88.8 Allergy status to other drugs, medicaments and biological substances; Z87.891 Personal history of nicotine dependence; Z82.5 Family history of asthma and other chronic lower respiratory diseases; Z82.0 Family history of epilepsy and other diseases of the nervous system
CPT/HCPCS: 36415; 71046; 76770; 80048; 80053; 81001; 82728; 83540; 83550; 83880; 85025; 85027; 85045; 85610; 85730; 93005; 93306; 94640; 94660; 96374; 99291